=== PATIENT | male | born 1935 | race Caucasian/White ===

== ENCOUNTER → 2016-11-27 | Day surgery (SDC) | payer MEDICARE, BC ==
[2016-11-21 15:08] VITALS: BMI 32.1
[~2016-11-27] MED LIST: ACETAMINOPHEN TAB 325 MG TAB PO PRN; ACETAMINOPHEN TAB 500 MG TAB PO PRN; ALPRAZolam 0.25 MG TAB PO PRN; ALPRAZolam 0.5 MG TAB PO PRN; ARTIFICIAL TEARS-HYPROMELLOSE DROPS 15 ML BTL BOTH EYES SCH; ASPIRIN 325 MG TAB PO STA; ATENOLOL 25 MG TAB PO SCH; ATORVASTATIN 80 MG TAB PO SCH; ATORVASTATIN 80 MG TAB PO STA; FELODIPINE 5 MG PO SCH; HYDROCHLOROTHIAZIDE 25 MG TAB PO SCH; HYDROmorphone 1 MG/ML 1 ML SYRINGE IVP STA; HYDROmorphone 1 MG/ML 1 ML SYRINGE ONE; IOHEXOL 350 MG/ML 125ML BOTTLE INJ ONE; ISOSORBIDE MONONITRATE 20 MG TAB PO SCH; LIDOCAINE 2% INJ 20 MG/ML (20 ML MDV) ONE; LIDOCAINE 2% INJ 20 MG/ML SQ ONE; METHOCARBAMOL 750 MG TAB PO SCH; MIDAZOLAM 2 MG/2 ML VIAL IV ONE; MIDAZOLAM 2 MG/2 ML VIAL ONE; NITROGLYCERIN SL TABS 0.4 MG TAB SUBLINGUAL PRN; NON-FORMULARY DRUG (Aspirin [Adult Low Dose Aspirin Ec] 81 MG) PO SCH; NON-FORMULARY DRUG (Meloxicam [Meloxicam] 15 MG) PO SCH; NON-FORMULARY DRUG (Omega-3 Fatty Acids/Fish Oil [Fish Oil 1,000 Mg Softgel] 1 EACH) PO SCH; NON-FORMULARY DRUG (Omeprazole [Omeprazole] 20 MG) PO SCH; RX INFO: IV CONTRAST WAS GIVEN 1 EACH MISC MISCELLANE PRN; SODIUM CHLORIDE 0.9% 1,000 ML IV SCH; SODIUM CHLORIDE 0.9% 1,000 ML in EMPTY BAG 1 BAG IV ONE; fentaNYL (PF) 50 MCG/ML 2 ML AMP IV ONE; fentaNYL (PF) 50 MCG/ML 2 ML AMP ONE; traMADol 50 MG TAB PO ONE; traMADol 50 MG TAB PO SCH
[2016-11-27 06:27] VITALS: TEMP 97.5
[2016-11-27] MEDS: BENZOCAINE SPRAY 1 SPRAY CAN MUCOUS MEM ONE ×2 (07:15→07:19)
[2016-11-27 08:39] LABS: Site FA
[2016-11-27 08:40] LABS: Site PA; Site RA
[2016-11-27 10:01] VITALS: RESP 16
[2016-11-27 11:41] LABS: Partial Thromboplastin Time 23.2 sec (22.0-30.0); Prothrombin Time 10.5 sec (9.0-12.0)
--- NOTE | 2016-11-27 11:48 | P.GSCN ---
<Adelita Alfredo - Last Filed: 11/27/16 11:33> History of Present Illness Consult date: 11/27/16 Reason for Consult: Symptomatic multivessel coronary artery disease, severe aortic stenosis, surgical recommendations. Requesting physician: Mignon Stokes History of present illness: This 81-year-old gentleman presented for elective cardiac catheterization and transesophageal echocardiogram. Apparently he had a heart catheterization in 2009 demonstrating significant mid LAD stenosis but with unsuccessful placement of a stent due to disease in the proximal LAD. He has been followed by cardiology and had an echocardiogram done in 2013 demonstrating moderate aortic stenosis. Lately he has complained of progressive fatigue and dyspnea as well as some lower extremity edema. He also complained of pain between his shoulders , sought medical attention, had an MRI, and was told he has a pinched nerve. He does state that this shoulder pain is relieved with nitroglycerin sublingual. He denied paroxysmal nocturnal dyspnea, orthopnea, palpitations, syncope, claudication, or signs of TIA or stroke. He was recommended to have heart catheterization and transesophageal echocardiogram which was completed this morning. The [facility] demonstrated severe aortic stenosis with a peak gradient of 90 mmHg and a mean gradient of 58 mmHg, aortic area 0.69 cm, normal LV function, mild AI, mild TR, mild MR. His heart catheterization demonstrated 50 % stenosis in the RCA, 90% stenosis of circumflex artery, and 90% proximal LAD stenosis. Due to the above findings Dr. Lam from cardiothoracic surgery was consulted for surgical recommendations. Review of Systems 14 point review of systems was completed and was negative except as noted. - Constitutional Reports fatigue - Cardiovascular Reports as per HPI, Reports dyspnea on exertion, Reports leg edema - Respiratory Reports as per HPI, Reports dyspnea - Musculoskeletal bilateral: shoulder pain Past Medical History Past Medical History: Coronary Artery Disease (CAD), Hyperlipidemia, Hypertension, Osteoarthritis (OA) Additional Past Medical History / Comment(s): Severe aortic stenosis, shoulder pain. History of Any Multi-Drug Resistant Organisms: None Reported Past Surgical History: Back Surgery, Joint Replacement Additional Past Surgical History / Comment(s): Bilateral knee replacements, bilateral cataract surgery, surgery to repair torn groin . Heart catheterization in 2009 without stent placement Additional Past Anesthesia/Blood Transfusion Reaction / Comm: Was told had a reaction to Sodium Pentothol during a surgery, states unaware of what reaction was. Past Psychological History: No Psychological Hx Reported Smoking Status: Former smoker Past Alcohol Use History: None Reported Additional Past Alcohol Use History / Comment(s): Smoked in his 20's, none since. Past Drug Use History: None Reported - Past Family History Father Family Medical History: Cancer Additional Family Medical History / Comment(s): Prostate cancer. Brother(s) Family Medical History: Coronary Artery Disease (CAD) Additional Family Medical History / Comment(s): Brother who of premature coronary artery disease at 45 years old Medications and Allergies Home Medications Medication Instructions Recorded Confirmed Type Acetaminophen [Tylenol Extra 500 mg PO Q6H PRN 11/21/16 11/21/16 History Strength] Acetaminophen [Tylenol] 650 mg PO Q4H PRN 11/21/16 11/21/16 History Artificial Tears-Hypromellose 1 drops BOTH EYES QID 11/21/16 11/21/16 History [Artificial Tear Drops] Aspirin [Adult Low Dose Aspirin EC] 81 mg PO DAILY 11/21/16 11/27/16 History Atenolol 25 mg PO DAILY 11/21/16 11/27/16 History Atorvastatin [Lipitor] 40 mg PO HS 11/21/16 11/27/16 History Felodipine [Felodipine ER] 5 mg PO BID 11/21/16 11/27/16 History Hydrochlorothiazide 12.5 mg PO DAILY 11/21/16 11/27/16 History Isosorbide Mononitrate 60 mg PO BID 11/21/16 11/27/16 History Meloxicam 15 mg PO DAILY 11/21/16 11/27/16 History Methocarbamol [Robaxin] 750 mg PO TID 11/21/16 11/27/16 History Nitroglycerin Sl Tabs [Nitrostat] 0.4 mg SUBLINGUAL Q5M PRN 11/21/16 11/27/16 History [place]-3 Fatty Acids/Fish Oil [Fish 1 each PO DAILY 11/21/16 11/27/16 History Oil 1,000 mg Softgel] Omeprazole 20 mg PO BID 11/21/16 11/27/16 History traMADol HCL [Ultram] 100 mg PO QID 11/21/16 11/27/16 History Allergies Allergy/AdvReac Type Severity Reaction Status Date / Time Penicillins Allergy Rash/Hives Verified 11/21/16 14:43 sodium pentothol Allergy Unknown Uncoded 11/21/16 14:43 Surgical - Exam Vital Signs Temp Pulse Resp BP Pulse Ox 97.5 F L 68 18 176/82 95 11/27/16 06:20 11/27/16 06:20 11/27/16 06:20 11/27/16 06:20 11/27/16 06:20 - General well developed, well nourished, no distress, no pain - Eyes PERRL, normal ocular movement - ENT no hearing loss - Neck trachea midline - Respiratory Respirations even, nonlabored. Currently on room air with oxygen saturation 95% . normal expansion, normal respiratory effort, clear to auscultation - Cardiovascular S1, S2 present. Regular rate and rhythm, normal sinus rhythm on telemetry. Palpable pulses bilaterally. No edema present. Positive minimal varicosities to bilateral lower extremity. - Abdomen Abdomen: soft, non tender, bowel sounds - Genitourinary Deferred - Rectum Deferred - Integumentary no rash, no growths - Psychiatric oriented to time, oriented to person, oriented to place, speech is normal, memory intact Results - Imaging Additional studies: Results of cardiac catheterization and transesophageal echocardiogram reviewed. Assessment and Plan (1) Coronary artery disease Status: Acute (2) Hypertension Status: Acute (3) Hyperlipidemia Status: Acute (4) Severe aortic stenosis Status: Acute (5) Family history of premature coronary artery disease Status: Acute (6) Tobacco dependence in remission Status: Acute Plan: The patient was seen and examined in the extended stay unit. Chart/diagnostics were reviewed. Preoperative teaching was initiated with patient and family. Preoperative testing was ordered. Will discuss the case with Dr. Lam for further surgical recommendations. Thank you Dr. Stokes for this consult. We look forward to working with you the care of your patient. Time with Patient: Greater than 30 <Carlo Lam - Last Filed: 11/27/16 14:35> Surgical - Exam Vital Signs Temp Pulse Resp BP Pulse Ox 97.5 F L 68 18 176/82 95 11/27/16 06:20 11/27/16 06:20 11/27/16 06:20 11/27/16 06:20 11/27/16 06:20 Results - Labs 11/27/16 11:18 11/27/16 11:18 Abnormal Lab Results - Last 24 Hours (Table) 11/27/16 11/27/16 11/27/16 Range/Units 11:18 11:18 11:18 RBC 4.00 L (4.30-5.90) m/uL Hgb 12.8 L (13.0-17.5) gm/dL Hct 38.7 L (39.0-53.0) % BUN 21 H (9-20) mg/dL Glucose 104 H (74-99) mg/dL Hemoglobin A1c 6.3 H (4.2-6.1) % Diabetes panel 11/27/16 11/27/16 Range/Units 11:18 11:18 Sodium 137 (137-145) mmol/L Potassium 4.6 (3.5-5.1) mmol/L Chloride 105 (98-107) mmol/L Carbon Dioxide 23 (22-30) mmol/L BUN 21 H (9-20) mg/dL Creatinine 0.80 (0.66-1.25) mg/dL Glucose 104 H (74-99) mg/dL Hemoglobin A1c 6.3 H (4.2-6.1) % Calcium 9.0 (8.4-10.2) mg/dL AST 31 (17-59) U/L ALT 49 (21-72) U/L Alkaline Phosphatase 75 (38-126) U/L Total Protein 6.4 (6.3-8.2) g/dL Albumin 3.7 (3.5-5.0) g/dL Triglycerides 136 (<150) mg/dL HDL Cholesterol 41 (40-60) mg/dL Thyroid panel 11/27/16 Range/Units 11:18 TSH 2.740 (0.465-4.680) mIU/L Calcium panel 11/27/16 Range/Units 11:18 Calcium 9.0 (8.4-10.2) mg/dL Albumin 3.7 (3.5-5.0) g/dL Pituitary panel 11/27/16 Range/Units 11:18 Sodium 137 (137-145) mmol/L Potassium 4.6 (3.5-5.1) mmol/L Chloride 105 (98-107) mmol/L Carbon Dioxide 23 (22-30) mmol/L BUN 21 H (9-20) mg/dL Creatinine 0.80 (0.66-1.25) mg/dL Glucose 104 H (74-99) mg/dL Calcium 9.0 (8.4-10.2) mg/dL TSH 2.740 (0.465-4.680) mIU/L Adrenal panel 11/27/16 Range/Units 11:18 Sodium 137 (137-145) mmol/L Potassium 4.6 (3.5-5.1) mmol/L Chloride 105 (98-107) mmol/L Carbon Dioxide 23 (22-30) mmol/L BUN 21 H (9-20) mg/dL Creatinine 0.80 (0.66-1.25) mg/dL Glucose 104 H (74-99) mg/dL Calcium 9.0 (8.4-10.2) mg/dL Total Bilirubin 0.4 (0.2-1.3) mg/dL AST 31 (17-59) U/L ALT 49 (21-72) U/L Alkaline Phosphatase 75 (38-126) U/L Total Protein 6.4 (6.3-8.2) g/dL Albumin 3.7 (3.5-5.0) g/dL Assessment and Plan Plan: The patient was seen and examined. I agree with the above assessment and plan. The patient is an 81-year-old male with a known history of aortic stenosis and coronary artery disease who reports worsening fatigue and shoulder pain relieved with sublingual nitroglycerin. His echocardiogram reveals severe aortic valve stenosis with a significant amount of calcium on a trileaflet aortic valve. His cardiac catheterization reveals multivessel coronary artery disease. Of note a previous catheterization back in 2009 revealed a 90% lesion in the proximal LAD. PCI was attempted on this lesion at that time however it could not be crossed easily with a wire. An aortic valve replacement along with coronary artery bypass recommended. The risks, benefits, and alternatives to these procedures were discussed with the patient and his family members. All their questions were answered. I did discuss the plan with Dr. Stokes, who is in agreement. We will plan on discharging the patient home. He needs dental clearance. We will arrange for his surgery to be performed within the next 1-2 weeks.
[2016-11-27 11:50] LABS: ALT 49 U/L (21-72); AST 31 U/L (17-59); Alkaline Phosphatase 75 U/L (38-126); Anion Gap 9 mmol/L; Blood Urea Nitrogen 21 mg/dL (9-20); Carbon Dioxide 23 mmol/L (22-30); Chloride 105 mmol/L (98-107); Cholesterol 109 mg/dL (<200); Glucose 104 mg/dL (74-99); HDL Cholesterol 41 mg/dL (40-60); Magnesium 1.7 mg/dL (1.6-2.3); Non-African American GFR(MDRD) >60 (>60 ml/min/1.73 sqM); Potassium 4.6 mmol/L (3.5-5.1); Sodium 137 mmol/L (137-145); Total Bilirubin 0.4 mg/dL (0.2-1.3); Total Protein 6.4 g/dL (6.3-8.2)
[2016-11-27 11:58] LABS: Basophils % (A) 0 %; CH 32.2; CHCM 33.4; Eosinophils # (A) 0.4 k/uL (0-0.7); Eosinophils % (A) 5 %; HCT 38.7 % (39.0-53.0); HDW 2.33; HGB 12.8 gm/dL (13.0-17.5); Luc # (Auto) 0.17; Luc % (Auto) 2; Lymphocytes # (A) 2.4 k/uL (1.0-4.8); Lymphocytes % (A) 31 %; MCH 32.1 pg (25.0-35.0); MCHC 33.1 g/dL (31.0-37.0); MCV 96.7 fL (80.0-100.0); Mean Platelet Volume 6.9; Monocytes # (A) 0.4 k/uL (0-1.0); Monocytes % (A) 5 %; Neutrophils # (A) 4.5 k/uL (1.3-7.7); Neutrophils % (A) 57 %; RDW 13.2 % (11.5-15.5); WBC 7.8 k/uL (3.8-10.6); WBC (Perox) 8.12
[2016-11-27 12:34] LABS: Appearance,Urine Clear (Clear); Bilirubin,Urine Negative (Negative); Glucose,Urine (UA) Negative (Negative); Ketones,Urine Negative (Negative); Leukocyte Esterase,Urine Negative (Negative); Nitrite,Urine Negative (Negative); Protein,Urine Negative (Negative); Specific Gravity,Urine 1.017 (1.001-1.035); UA Billing (MACRO vs. MICRO) CHEM; Urobilinogen,Urine <2.0 mg/dL (<2.0)
--- NOTE | 2016-11-27 13:04 | ECHOT ---
INDICATION: Evaluation of aortic valve. PROCEDURE: After explaining the procedure to the patient, its risks and the complications, blood pressure, heart rate, O2 saturation were monitored. The throat was sprayed with Cetacaine. He received 2 mg of intravenous Versed, 50 mcg intravenous fentanyl. After obtaining moderate conscious sedated state, the probe was introduced in the esophagus without difficulty. Images were obtained. Following that, the probe was removed. There was no immediate complication. FINDINGS: Left atrial size is mildly dilated. Left atrial appendage is normal. Left ventricular size and systolic function normal. Concentric left ventricular hypertrophy was noted. The aortic valve is a tricuspid valve with severe calcification and reduction in the opening. The mitral valve appears to be normal. Tricuspid valve appears to be normal. Descending thoracic aorta revealed mild atherosclerotic changes. No pericardial effusion was noted. Contrast bubble study revealed no evidence of shunting across the interatrial septum. Doppler pulse wave and color Doppler obtained revealed mild to moderate mitral with mild tricuspid, aortic and trace pulmonic regurgitation. The peak gradient across the aortic valve was 105 mmHg with a mean of 56 mmHg. CONCLUSION: 1. Mildly dilated left atrium with normal appearance of left atrial appendage. 2. Normal left ventricular size and systolic function. Concentric left ventricular hypertrophy. 3. Severe aortic stenosis with tricuspid valve and a peak gradient of 105 mmHg and a mean of 56 mmHg. 4. Mild to moderate mitral with mild tricuspid, aortic and trace pulmonic regurgitation. 5. Mild atherosclerotic changes of the descending thoracic aorta. 6. No shunting across the interatrial septum. MTDD
[2016-11-27 14:06] LABS: Hemoglobin A1C 6.3 % (4.2-6.1)
--- NOTE | 2016-11-27 15:17 | XR ---
EXAMINATION TYPE: XR chest 2V DATE OF EXAM: 11/27/2016 COMPARISON: 05/08/2009 TECHNIQUE: PA and lateral views submitted. HISTORY: Pre-op CABG FINDINGS: The lungs are clear and there is no pneumothorax, pleural effusion, or focal pneumonia. Arthropathy of the shoulders. Hypertrophic and degenerative change of the spine. No overt failure. Mild prominen ce of the ascending aorta. IMPRESSION: 1. No acute process. Cannot exclude an ascending aortic aneurysm. Correlate clinically. A Ladora message has been communicated to Adelita Alfredo via the [employer] Critical Result system on 11/27/2016 3:14 PM, Message ID [id number].
[2016-11-27 15:47] VITALS: BP 138/62; PULSE 76
[2016-11-27 20:26] LABS: Hepatitis B Surface Ag Index 0.05
[2016-11-27 20:32] LABS: Hepatitis B Core IgM Index 0.01
[2016-11-27 20:43] LABS: Hepatitis C Virus IgG Ab Negative (Negative); Hepatitis C Virus IgG Index 0.01
--- NOTE | 2016-11-28 09:36 | PCN ---
Mr. Arora is an 81-year-old male with known history of hypertension, hyperlipidemia, history of coronary artery disease, who has been complaining of symptoms of progressive dyspnea and chest discomfort. He was found to have severe aortic stenosis. In view of that, recommendation was made regarding cardiac catheterization. The procedure, the risks, benefits and complications were discussed with the patient who was in full understanding and agreement. PROCEDURE: The patient was brought to the [facility] in fasting semi-sedated state after receiving Fentanyl and Benadryl and achieving moderate conscious sedated state. Using Xylocaine anesthesia and Seldinger technique, a 6 Tunisian sheath was introduced into the right femoral artery and 8 Tunisian sheath in the right femoral vein. Right heart catheterization was performed using Lucas-Jose catheter and multiple pressure samples were obtained. Cardiac output by Thermodilution was calculated. Following that selective right and left coronary angiography was performed using 6 Tunisian 4 bend right and left Yesi catheters. Multiple views of the coronary arteries including hemiaxial views obtained. Following that a 6-Tunisian tight pigtail catheter was introduced into the left ventricle and a 30 degree REYNOSO view of the left ventricle was obtained. Following that catheter and sheath were removed. Hemostasis was obtained with deployment of an Angio-Seal and compression of the right femoral vein. There were no immediate complications. FINDINGS: Cardiac output by Thermodilution 5.2 L/min, by [place] 5.2 L/min. Right atrial saturation 74%. Pulmonary artery saturation 70%. Femoral artery saturation 97%. Pulmonary artery systolic pressure 35 with diastolic of 12 and mean of 20 mmHg. Pulmonary capillary wedge pressure A-wave of 12, V-wave of 12 with mean of 11 mmHg. Right ventricular systolic pressure of 34 with end-diastolic of 6 mmHg. Right atrial A-wave of 7, V-wave of 4 with mean of 4 mmHg. Left ventricular systolic pressure 240 mmHg with ascending aortic pressure of 140 mmHg with 100 mm gradient and valve area ranging between 0.5 and 0.6 cm sq. Left ventricular end-diastolic pressure 20 to 24 mmHg. FLUOROSCOPY: There is severe calcification involving coronary arteries as well as the aortic valve. LEFT MAIN: This is a large size vessel bifurcating into left circumflex, left anterior descending artery. The left main coronary artery is without any significant obstructive coronary artery disease. LEFT ANTERIOR DESCENDING ARTERY: This is a large size vessel reaching towards the apex with wrap around the apex segment giving rise to a large diagonal branch proximally. The diagonal branch has a 70 to 80% proximal stenosis. The left anterior descending artery after the takeoff of the diagonal branch has a 95% stenosis. The rest of the vessel has no high-grade stenosis. LEFT CIRCUMFLEX: This is nondominant vessel moderate to large in caliber. Has a longer tubular lesion in the mid-segment with area of stenosis up to 85 to 90% . The rest of the vessel has no high grade stenosis. RIGHT CORONARY ARTERY: This is a large nondominant vessel bifurcating distally into PDA distally and posterior segment and branches. The right coronary artery in the mid-segment has area of stenosis of 40 to 50% without any evidence of focal high grade stenosis. LEFT VENTRICULOGRAM: The left ventriculogram is performed in 30 degree REYNOSO view and revealed a normal left ventricular size with arrhythmia induced mitral regurgitation. The ejection fraction is 60%. CONCLUSION: 1. Severely calcified coronary arteries and severely calcified aortic valve. 2. Severe coronary artery disease involving the left anterior disease and left circumflex with moderate disease in the right coronary artery. 3. Severe critical aortic stenosis. 4. Normal left ventricular size and systolic function. RECOMMENDATIONS: In view of finding anatomy, I recommend proceeding with evaluation for coronary artery bypass grafting and aortic valve replacement. Those findings and recommendations were discussed with the patient who is in full understanding and agreement. DURATION OF THE PROCEDURE: 39 minutes. GRAHAM
== END | disposition home or self-care (01) ==
LOC: CATHCVL 05:48
PROVIDERS: ATTEND Internal Medicine Interventional Cardiology
DX: I08.3 Combined rheumatic disorders of mitral, aortic and tricuspid valves (principal); I37.1 Nonrheumatic pulmonary valve insufficiency; I25.118 Atherosclerotic heart disease of native coronary artery with other forms of angina pectoris; I25.84 Coronary atherosclerosis due to calcified coronary lesion; I51.7 Cardiomegaly; Z82.49 Family history of ischemic heart disease and other diseases of the circulatory system; Z87.891 Personal history of nicotine dependence; I10 Essential (primary) hypertension; E78.2 Mixed hyperlipidemia; I73.9 Peripheral vascular disease, unspecified; Z79.82 Long term (current) use of aspirin; Z79.899 Other long term (current) drug therapy; Z88.0 Allergy status to penicillin; Z88.8 Allergy status to other drugs, medicaments and biological substances
CPT/HCPCS: 71020; 80053; 80061; 80074; 81003; 82810; 83036; 83735; 83880; 84443; 85018; 85025; 85610; 85730; 86850; 86900; 86901; 87070; 87086; 93312; 93320; 93325; 93460; 93970; 94150

== ENCOUNTER → 2016-12-02 | Outpatient (CLI) | payer MEDICARE, BC ==
[2016-12-02 10:32] LABS: Blood Urea Nitrogen 29 mg/dL (9-20); Non-African American GFR(MDRD) >60 (>60 ml/min/1.73 sqM)
--- NOTE | 2016-12-02 13:38 | CT ---
EXAMINATION TYPE: CT chest w con DATE OF EXAM: 12/02/2016 COMPARISON: NONE HISTORY: Patient has no complaints at time of study. Pre open heart valve replacement. CT DLP: 507 mGycm, Automated exposure control for dose reduction was used. CONTRAST: Performed injected with 100 mL of Omnipaque 300. TECHNIQUE: Axial images were obtained at 5 mm thick sections. Reconstructed images are reviewed on [employer] computer in the coronal plane. FINDINGS: Portion of the thyroid visualized is normal. No suspicious lung nodules or focal infiltrates are present. No enlarged mediastinal or hilar adenopathy is evident. There multiple shotty lymph nodes present. Note is made of coronary artery calcification. The ascending aorta diameter at the level of the main pulmonary artery is 4.0 cm. The main pulmonary artery diameter at the bifurcation is 2.[address] sections are obtained through the upper abdomen. Moderate fatty infiltration within the li michelle is present. Vascular calcifications within the aorta. There is fatty infiltration within the panc reas. IMPRESSIONS: 1. No acute intrathoracic changes. 2. 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 3. Fatty infiltration liver and pancreas.
== END | disposition home or self-care (01) ==
LOC: RADCTMAIN 09:51
PROVIDERS: ATTEND Surgery
DX: I71.2 Thoracic aortic aneurysm, without rupture (principal); Z88.0 Allergy status to penicillin; Z88.8 Allergy status to other drugs, medicaments and biological substances
CPT/HCPCS: 82565; 84520; 71260; 36415; Q9967

== ENCOUNTER 2016-12-10 08:00 | Inpatient (IN) | payer MEDICARE, BC ==
[2016-12-06 11:14] VITALS: BMI 31.1
[2016-12-11] MEDS ORDERED: ALBUMIN HUMAN 5% 500 ML IVPB ONE (05:00)
[2016-12-11] MEDS ORDERED: HEPARIN SODIUM,PORCINE 5,000 UNIT in SODIUM CHLORIDE 0.9% 500 ML IV ONE (05:00)
[2016-12-11] MEDS ORDERED: NITROGLYCERIN-D5W PMX 25 MG/250 ML BTL IV ONE (05:00)
[2016-12-11] MEDS ORDERED: PAPAVERINE 360 MG in SODIUM CHLORIDE 0.9% 90 ML IV ONE (05:00)
[2016-12-11] MEDS ORDERED: ASPIRIN 325 MG TAB PO ONE (05:00)
[2016-12-11] MEDS ORDERED: ceFAZolin 1,000 MG in SODIUM CHLORIDE 0.9% IRRIGATIO 1,000 ML IRRIGATION ONE (05:00)
[2016-12-11] MEDS ORDERED: ceFAZolin 2,000 MG in SODIUM CHLORIDE 0.9% 30 ML IVPB ONE ×4 (05:00)
[2016-12-11] MEDS ORDERED: ATORVASTATIN 10 MG TAB PO ONE (05:00)
[2016-12-11] MEDS ORDERED: MAGNESIUM SULFATE MG 500 MG/ML VIAL IV ONE (05:00)
[2016-12-11] MEDS ORDERED: PHENYLEPHRINE-0.9% NACL SYG 1 MG/10 ML SYRINGE IV ONE (05:00)
[2016-12-11] MEDS ORDERED: CLEVIDIPINE BUTYRATE 25 MG in EMPTY BAG 1 BAG IV ONE (05:00)
[2016-12-11] MEDS ORDERED: SODIUM BICARB 8.4% 50 ML SYR (1 MEQ/ML) IV ONE ×2 (05:00→18:45)
[2016-12-11] MEDS ORDERED: CALCIUM CHLORIDE 100 MG/ML 10 ML SYRINGE IV ONE (05:00)
[2016-12-11] MEDS ORDERED: PROTAMINE SULFATE 250 MG in EMPTY BAG 1 BAG IV ONE (05:00)
[2016-12-11] MEDS ORDERED: DEXTROSE 5% IN WATER 1,000 ML with POTASSIUM CHLORIDE 25 MEQ, SODIUM CHLORIDE 4MEQ/ML V... IV ONE ×6 (05:00)
[2016-12-11] MEDS ORDERED: PROTAMINE SULFATE 10 MG/ML 25 ML VIAL IV ONE ×2 (05:00→08:38)
[2016-12-11] MEDS ORDERED: HEPARIN SODIUM 1,000 UN/ML (10ML VL) IV ONE (05:00)
[2016-12-11] MEDS ORDERED: DEXTROSE 5% IN WATER 1,000 ML with POTASSIUM CHLORIDE 110 MEQ, MAGNESIUM SULFATE 16 MEQ... IV ONE ×5 (05:00)
[2016-12-11] MEDS ORDERED: NITROGLYCERIN SL TABS 0.4 MG TAB SUBLINGUAL ONE (05:00)
[2016-12-11] MEDS ORDERED: PROPOFOL 1,000 MG/100 ML VIAL IV ONE (05:00)
[2016-12-11] MEDS ORDERED: SODIUM CHLORIDE 0.9% 1,000 ML IV ONE (05:00)
[2016-12-11] MEDS ORDERED: METOPROLOL TARTRATE 12.5 MG TAB PO ONE (05:00)
[2016-12-11] MEDS ORDERED: INSULIN REGULAR 100 UNIT in SODIUM CHLORIDE 0.9% 100 ML IV ONE (05:00)
[2016-12-11] MEDS ORDERED: AMINOCAPROIC ACID 250 MG/ML 20 ML VIAL IV ONE (05:00)
[2016-12-11] MEDS ORDERED: LACTATED RINGERS 1,000 ML IV ONE (05:00)
[2016-12-11] MEDS ORDERED: MANNITOL 25% 12.5 GM/50 ML VIAL IV ONE (05:00)
[2016-12-11] MEDS ORDERED: AMINOCAPROIC ACID 5,000 MG in DEXTROSE 5% IN WATER 50 ML IV ONE ×2 (05:00)
[2016-12-11] MEDS ORDERED: ALBUMIN HUMAN 25% 50 ML IV ONE (05:00)
[2016-12-11] MEDS ORDERED: NITROGLYCERIN-D5W PMX 50 MG in DEXTROSE/WATER 1 250ML.BAG IV ONE (05:00)
[2016-12-11] MEDS ORDERED: CHLORHEXIDINE GLUCONATE 15 ML CUP MUCOUS MEM ONE (05:00)
[2016-12-11] MEDS ORDERED: NOREPINEPHRIN 4 MG-0.9% NS PMX 4 MG/250 ML ML IV ONE (05:00)
[2016-12-11] MEDS ORDERED: PHENYLEPHRINE 40 MG in SODIUM CHLORIDE 0.9% 250 ML IV ONE (05:00)
[2016-12-11] MEDS ORDERED: LACTATED RINGERS 1,000 ML IV SCH ×2 (06:07→16:47)
[2016-12-11 06:51] LABS: Glucose,Whole Blood 103 mg/dL (75-99)
[2016-12-11] MEDS ORDERED: SODIUM CHLORIDE 0.9% IRRIG 1,000 ML BTL IRRIGATION ONE (08:38)
[2016-12-11] MEDS ORDERED: MIDAZOLAM 2 MG/2 ML VIAL ONE (08:38)
[2016-12-11] MEDS ORDERED: ELECTROLYTE-R (PH 7.4) 1,000 ML IV.SOLN IV ONE (08:38)
[2016-12-11] MEDS ORDERED: CALCIUM CHLORIDE 100 MG/ML 10 ML SYRINGE ONE (08:38)
[2016-12-11] MEDS ORDERED: fentaNYL (PF) 50 MCG/ML 2 ML AMP ONE (08:38)
[2016-12-11] MEDS ORDERED: VECURONIUM 10 MG VIAL IV ONE (08:38)
[2016-12-11] MEDS ORDERED: ePHEDrine SULFATE/0.9% NACL/PF 50 MG/5 ML SYRINGE IV ONE (08:38)
[2016-12-11] MEDS ORDERED: fentaNYL (PF) 50 MCG/ML 50 ML VIAL ONE (08:38)
[2016-12-11] MEDS ORDERED: ALBUMIN HUMAN 5% 500 ML VIAL IVPB ONE (08:38)
[2016-12-11] MEDS ORDERED: MAGNESIUM SULFATE 4 MEQ/ML 2 ML VIAL ONE (08:38)
[2016-12-11] MEDS ORDERED: PHENYLEPHRINE-0.9% NACL SYG 1 MG/10 ML SYRINGE ONE (08:38)
[2016-12-11] MEDS ORDERED: PROPOFOL 10 MG/ML 20 ML VIAL IV ONE (08:38)
[2016-12-11] MEDS ORDERED: HEPARIN SODIUM,PORCINE 10,000 UNIT/ML 1 ML VIAL ONE (08:38)
[2016-12-11] MEDS ORDERED: MUPIROCIN 2% OINT 22 GM TUBE NASAL ONE (09:00)
[2016-12-11 09:21] LABS: Glucose,Whole Blood 99 mg/dL (75-99)
[2016-12-11 10:40] LABS: Glucose,Whole Blood 119 mg/dL (75-99)
[2016-12-11 11:33] LABS: Glucose,Whole Blood 156 mg/dL (75-99)
[2016-12-11 12:03] LABS: Glucose,Whole Blood 245 mg/dL (75-99)
[2016-12-11 13:04] LABS: Glucose,Whole Blood 293 mg/dL (75-99)
[2016-12-11 13:46] LABS: Glucose,Whole Blood 250 mg/dL (75-99)
[2016-12-11 14:24] LABS: Glucose,Whole Blood 295 mg/dL (75-99)
[2016-12-11 14:51] LABS: Glucose,Whole Blood 238 mg/dL (75-99)
[2016-12-11] MEDS ORDERED: AMIODARONE 450 MG in DEXTROSE 5% IN WATER 250 ML IV ONE ×2 (15:00)
[2016-12-11 15:28] LABS: Glucose,Whole Blood 194 mg/dL (75-99)
[2016-12-11 15:56] LABS: Glucose,Whole Blood 164 mg/dL (75-99)
[2016-12-11] MEDS ORDERED: Phosphorus Replacement Protoco 1 EACH MISC MISCELLANE PRN (16:47)
[2016-12-11] MEDS ORDERED: METOCLOPRAMIDE 5 MG/ML 2 ML VIAL IVP PRN (16:47)
[2016-12-11] MEDS ORDERED: PROPOFOL 1,000 MG/100 ML VIAL IV SCH (16:47)
[2016-12-11] MEDS ORDERED: CALCIUM GLUCONATE 2,000 MG in SODIUM CHLORIDE 0.9% 100 ML IVPB PRN (16:47)
[2016-12-11] MEDS ORDERED: MORPHINE SULFATE 2 MG/ML SYRINGE IVP PRN (16:47)
[2016-12-11] MEDS ORDERED: ONDANSETRON 4 MG/2 ML VIAL IVP PRN (16:47)
[2016-12-11] MEDS ORDERED: Potassium Replacement Protocol 1 EACH MISC MISCELLANE PRN (16:47)
[2016-12-11] MEDS ORDERED: Magnesium Replacement Protocol 1 EACH MISC MISCELLANE PRN (16:47)
[2016-12-11] MEDS ORDERED: BENZOCAINE/MENTHOL LOZENG 1 EACH LOZENGE MUCOUS MEM PRN (16:47)
[2016-12-11] MEDS ORDERED: INSULIN REGULAR 100 UNIT in SODIUM CHLORIDE 0.9% 100 ML IV SCH (17:30)
[2016-12-11 17:53] LABS: Glucose,Whole Blood 139 mg/dL (75-99)
[2016-12-11] MEDS: IPRATROPIUM-ALBUTEROL 3 ML NEB INHALATION SCH ×3 (18:25→23:08)
[2016-12-11 18:54] LABS: Glucose,Whole Blood 151 mg/dL (75-99)
[2016-12-11 18:55] LABS: Ionized Calcium 4.2 mg/dL (4.5-5.3)
[2016-12-11 19:00] LABS: Prothrombin Time 19.2 sec (9.0-12.0)
[2016-12-11 19:02] LABS: ALT 32 U/L (21-72); AST 33 U/L (17-59); Alkaline Phosphatase <20 U/L (38-126); Anion Gap 9 mmol/L; Blood Urea Nitrogen 18 mg/dL (9-20); Calcium 7.1 mg/dL (8.4-10.2); Carbon Dioxide 26 mmol/L (22-30); Chloride 107 mmol/L (98-107); Glucose 132 mg/dL (74-99); Magnesium 2.2 mg/dL (1.6-2.3); Non-African American GFR(MDRD) >60 (>60 ml/min/1.73 sqM); Potassium 4.4 mmol/L (3.5-5.1); Sodium 142 mmol/L (137-145); Total Bilirubin 1.3 mg/dL (0.2-1.3); Total Protein 3.8 g/dL (6.3-8.2)
[2016-12-11 19:07] LABS: Basophils % (A) 0 %; CH 30.9; CHCM 33.8; Eosinophils % (A) 0 %; HDW 2.93; Luc # (Auto) 0.07; Luc % (Auto) 1; Lymphocytes # (A) 0.6 k/uL (1.0-4.8); Lymphocytes % (A) 10 %; MCH 31.7 pg (25.0-35.0); MCHC 34.4 g/dL (31.0-37.0); MCV 92.1 fL (80.0-100.0); Mean Platelet Volume 7.9; Monocytes # (A) 0.5 k/uL (0-1.0); Monocytes % (A) 8 %; Neutrophils # (A) 5.4 k/uL (1.3-7.7); Neutrophils % (A) 81 %; RBC 1.93 m/uL (4.30-5.90); RDW 14.7 % (11.5-15.5); WBC 6.6 k/uL (3.8-10.6); WBC (Perox) 6.55
[2016-12-11 19:09] LABS: HGB 6.1 gm/dL (13.0-17.5)
[2016-12-11 19:10] LABS: HCT 17.8 % (39.0-53.0)
[2016-12-11 19:16] LABS: Partial Thromboplastin Time 116.9 sec (22.0-30.0)
[2016-12-11 19:34] LABS: Manual Review Performed
--- NOTE | 2016-12-11 19:34 | XR ---
EXAMINATION TYPE: XR chest 1V portable DATE OF EXAM: 12/11/2016 HISTORY: Post Operative Cardiac Surgery COMPARISON: November 27, 2016 TECHNIQUE: Single view of the chest is submitted. FINDINGS: Endotracheal tube, NG tube, SG catheter, mediastianal drains and left chest tube are appropriately pl aced. Sternotomy wires noted. Cardiac valvular prosthesis. No sizeable pneumothorax. Scattered Pleural-parenchymal opacities may reflect atelectasis. The heart mildly enlarged. IMPRESSION: 1. Post operative changes of CABG.
[2016-12-11 19:56] LABS: Glucose,Whole Blood 152 mg/dL (75-99)
[2016-12-11 20:04] LABS: ABG Base Excess -3.5 mmol/L; ABG HCO3 22 mmol/L (21-25); ABG PCO2 44 mmHg (35-45); ABG PH 7.32 (7.35-7.45); ABG PO2 351 mmHg (83-108); ABG TCO2 23 mmol/L (19-24)
[2016-12-11] MEDS: ceFAZolin 2 GM in SODIUM CHLORIDE 0.9% 100 ML IVPB SCH (20:30)
[2016-12-11] MEDS: ACETAMINOPHEN IV (For NPO) 1,000 MG in EMPTY BAG 1 BAG IVPB SCH ×2 (20:30→23:11)
[2016-12-11 20:55] LABS: Glucose,Whole Blood 164 mg/dL (75-99)
[2016-12-11 21:03] LABS: Basophils % (A) 0 %; CH 29.4; CHCM 33.3; Eosinophils % (A) 0 %; HCT 23.6 % (39.0-53.0); HDW 3.12; Luc # (Auto) 0.12; Luc % (Auto) 1; Lymphocytes # (A) 1.1 k/uL (1.0-4.8); Lymphocytes % (A) 13 %; MCH 30.6 pg (25.0-35.0); MCHC 34.5 g/dL (31.0-37.0); MCV 88.8 fL (80.0-100.0); Mean Platelet Volume 8.8; Monocytes # (A) 0.5 k/uL (0-1.0); Monocytes % (A) 7 %; Neutrophils # (A) 6.3 k/uL (1.3-7.7); Neutrophils % (A) 79 %; RBC 2.66 m/uL (4.30-5.90); RDW 15.9 % (11.5-15.5); WBC 8.1 k/uL (3.8-10.6); WBC (Perox) 8.31
[2016-12-11 21:07] LABS: HGB 8.2 gm/dL (13.0-17.5)
[2016-12-11] MEDS: MUPIROCIN 2% OINT 22 GM TUBE NASAL SCH (21:19)
[2016-12-11 21:22] LABS: INR 1.7 (<1.2); Partial Thromboplastin Time 86.4 sec (22.0-30.0); Prothrombin Time 16.2 sec (9.0-12.0)
[2016-12-11 21:27] LABS: Ionized Calcium 4.5 mg/dL (4.5-5.3)
[2016-12-11 21:30] LABS: Anion Gap 8 mmol/L; Blood Urea Nitrogen 17 mg/dL (9-20); Carbon Dioxide 21 mmol/L (22-30); Chloride 109 mmol/L (98-107); Glucose 136 mg/dL (74-99); Magnesium 2.2 mg/dL (1.6-2.3); Non-African American GFR(MDRD) >60 (>60 ml/min/1.73 sqM); Phosphorous 3.8 mg/dL (2.5-4.5); Potassium 4.6 mmol/L (3.5-5.1); Sodium 138 mmol/L (137-145)
[2016-12-11 21:53] LABS: Glucose,Whole Blood 145 mg/dL (75-99)
[2016-12-11] MEDS: CLEVIDIPINE BUTYRATE 25 MG in EMPTY BAG 1 BAG IV SCH ×2 (21:53→23:58)
[2016-12-11] MEDS: SODIUM BICARB 8.4% 50 ML SYR (1 MEQ/ML) IV SCH (23:03)
[2016-12-11 23:04] LABS: ABG Base Excess -5.7 mmol/L; ABG HCO3 21 mmol/L (21-25); ABG PCO2 52 mmHg (35-45); ABG PH 7.23 (7.35-7.45); ABG PO2 123 mmHg (83-108); ABG TCO2 22 mmol/L (19-24)
[2016-12-11 23:08] LABS: Glucose,Whole Blood 188 mg/dL (75-99)
[2016-12-11] MEDS: ALBUMIN HUMAN 5% 250 ML in EMPTY BAG 1 BAG IVPB PRN (23:24)
[2016-12-11] MEDS ORDERED: AMIODARONE 450 MG in DEXTROSE 5% IN WATER 250 ML IV SCH ×2 (23:26)
[2016-12-11 23:59] LABS: Glucose,Whole Blood 178 mg/dL (75-99)
[2016-12-12] MEDS ORDERED: HEPARIN SODIUM,PORCINE 5,000 UNIT/ML 1 ML VIAL SQ SCH
[2016-12-12 00:59] LABS: Glucose,Whole Blood 217 mg/dL (75-99)
[2016-12-12] MEDS: ceFAZolin 2 GM in SODIUM CHLORIDE 0.9% 100 ML IVPB SCH ×2 (01:37→10:00)
[2016-12-12 01:58] LABS: Glucose,Whole Blood 223 mg/dL (75-99)
[2016-12-12] MEDS: ALBUMIN HUMAN 5% 250 ML in EMPTY BAG 1 BAG IVPB PRN ×5 (02:30→10:54)
[2016-12-12] MEDS: IPRATROPIUM-ALBUTEROL 3 ML NEB INHALATION SCH ×4 (03:00→15:54)
[2016-12-12 03:18] LABS: Glucose,Whole Blood 222 mg/dL (75-99)
[2016-12-12] MEDS ORDERED: NOREPINEPHRIN 16 MG-0.9%NS PMX 16 MG/250 ML ML IV SCH (04:00)
[2016-12-12 04:18] LABS: Glucose,Whole Blood 160 mg/dL (75-99)
[2016-12-12 04:22] LABS: ABG Base Excess -11.1 mmol/L; ABG HCO3 17 mmol/L (21-25); ABG PCO2 57 mmHg (35-45); ABG PO2 96 mmHg (83-108); ABG TCO2 19 mmol/L (19-24)
[2016-12-12 04:27] LABS: Anisocytosis Slight; Basophils % (A) 0 %; CH 29.2; CHCM 32.7; Eosinophils % (A) 0 %; HCT 20.4 % (39.0-53.0); HDW 3.28; Luc # (Auto) 0.05; Luc % (Auto) 1; Lymphocytes % (A) 12 %; MCH 29.5 pg (25.0-35.0); MCHC 32.7 g/dL (31.0-37.0); MCV 90.1 fL (80.0-100.0); Mean Platelet Volume 8.3; Monocytes # (A) 0.3 k/uL (0-1.0); Monocytes % (A) 4 %; Neutrophils # (A) 7.1 k/uL (1.3-7.7); Neutrophils % (A) 83 %; RBC 2.26 m/uL (4.30-5.90); RDW 17.3 % (11.5-15.5); WBC 8.5 k/uL (3.8-10.6); WBC (Perox) 8.31
[2016-12-12] MEDS ORDERED: SODIUM BICARB 8.4% 50 ML SYR (1 MEQ/ML) IV ONE ×6 (04:30→12:15)
[2016-12-12 04:33] LABS: Ionized Calcium 4.4 mg/dL (4.5-5.3)
[2016-12-12 04:40] LABS: INR 1.7 (<1.2); Prothrombin Time 16.3 sec (9.0-12.0)
[2016-12-12 04:41] LABS: ALT 162 U/L (21-72); AST 216 U/L (17-59); Alkaline Phosphatase 23 U/L (38-126); Anion Gap 17 mmol/L; Blood Urea Nitrogen 18 mg/dL (9-20); Carbon Dioxide 17 mmol/L (22-30); Chloride 108 mmol/L (98-107); Glucose 140 mg/dL (74-99); Magnesium 2.4 mg/dL (1.6-2.3); Non-African American GFR(MDRD) >60 (>60 ml/min/1.73 sqM); Potassium 5.3 mmol/L (3.5-5.1); Sodium 142 mmol/L (137-145); Total Bilirubin 1.4 mg/dL (0.2-1.3); Total Protein 4.1 g/dL (6.3-8.2)
[2016-12-12 04:58] LABS: HGB 6.7 gm/dL (13.0-17.5)
[2016-12-12] MEDS: SODIUM BICARB 8.4% 50 ML SYR (1 MEQ/ML) IV SCH ×2 (05:27→05:28)
[2016-12-12 05:53] LABS: Glucose,Whole Blood 118 mg/dL (75-99)
[2016-12-12] MEDS: ACETAMINOPHEN IV (For NPO) 1,000 MG in EMPTY BAG 1 BAG IVPB SCH ×2 (06:18→12:48)
[2016-12-12 07:08] LABS: Glucose,Whole Blood 82 mg/dL (75-99)
[2016-12-12 08:10] LABS: ABG PH 7.35 (7.35-7.45)
[2016-12-12 08:11] LABS: ABG Base Excess -7.3 mmol/L; ABG HCO3 17 mmol/L (21-25); ABG Oxygen Saturation 98.2 % (94-97); ABG PCO2 32 mmHg (35-45); ABG PO2 112 mmHg (83-108); ABG TCO2 18 mmol/L (19-24)
[2016-12-12] MEDS ORDERED: MILRINONE-D5W PMX 20 MG in DEXTROSE/WATER 1 100ML.BAG IV SCH ×2 (08:15→08:30)
[2016-12-12 08:33] LABS: Glucose,Whole Blood 72 mg/dL (75-99)
[2016-12-12] MEDS ORDERED: ALBUMIN HUMAN 5% 500 ML in EMPTY BAG 1 BAG IVPB ONE ×3 (09:00→12:43)
[2016-12-12] MEDS ORDERED: METOPROLOL TARTRATE 12.5 MG TAB PO SCH (09:00)
[2016-12-12] MEDS ORDERED: ASPIRIN 325 MG TAB PO SCH (09:00)
[2016-12-12] MEDS ORDERED: PANTOPRAZOLE 40 MG/10 ML VIAL IVP SCH (09:00)
[2016-12-12] MEDS ORDERED: CLOPIDOGREL 75 MG TAB PO SCH (09:00)
[2016-12-12] MEDS ORDERED: ATORVASTATIN 40 MG TAB PO SCH (09:00)
--- NOTE | 2016-12-12 09:05 | XR ---
EXAMINATION TYPE: XR chest 1V portable DATE OF EXAM: 12/12/2016 COMPARISON: NONE HISTORY: Postop TECHNIQUE: Single frontal view of the chest is obtained. FINDINGS: Bilateral consolidation small effusion noted. ET and NG tube stable. NG tube courses into the abdomen. Additional drains are stable including left-sided chest tube. Arthropathy of the shoulde rs. Left lower lobe consolidation and small effusion stable. IMPRESSION: 1. Stable postoperative change with bilateral consolidation and pleural effusion greater on the left.
[2016-12-12 09:06] LABS: Glucose,Whole Blood 57 mg/dL (75-99)
[2016-12-12 09:06] LABS: Glucose,Whole Blood 77 mg/dL (75-99)
[2016-12-12] MEDS ORDERED: CALCIUM CHLORIDE 100 MG/ML 10 ML SYRINGE IVP ONE (09:13)
[2016-12-12 09:48] LABS: Anisocytosis Slight; CH 30.9; HCT 21.3 % (39.0-53.0); HDW 3.26; HGB 7.2 gm/dL (13.0-17.5); MCH 30.2 pg (25.0-35.0); Mean Platelet Volume 8.9; RBC 2.39 m/uL (4.30-5.90); RDW 16.7 % (11.5-15.5); WBC 9.1 k/uL (3.8-10.6); WBC (Perox) 9.12
[2016-12-12 09:52] LABS: ABG Base Excess -11.9 mmol/L; ABG HCO3 14 mmol/L (21-25); ABG Oxygen Saturation 95.6 % (94-97); ABG PCO2 36 mmHg (35-45); ABG PH 7.23 (7.35-7.45); ABG PO2 93 mmHg (83-108); ABG TCO2 15 mmol/L (19-24)
[2016-12-12 10:23] LABS: Add Differential Manual Differential
[2016-12-12 10:28] LABS: Band Neutrophils % 28 %; Nucleated Red Blood Cells 0 /100 WBC (0-0); Total Cells Counted 200
[2016-12-12 10:32] LABS: Polychromasia Present; Spherocytes Present
[2016-12-12] MEDS ORDERED: SODIUM BICARB 8.4% 50 ML SYR (1 MEQ/ML) IV STA ×2 (10:32→11:11)
[2016-12-12] MEDS ORDERED: DEXTROSE 50%-WATER 50 ML SYRINGE IVP STA (10:46)
[2016-12-12 10:51] LABS: Glucose,Whole Blood 69 mg/dL (75-99)
[2016-12-12 10:57] LABS: CH 29.8; CHCM 34.5; HDW 3.25; HGB 7.1 gm/dL (13.0-17.5); Immature Gran Flag Moderate; MCH 30.8 pg (25.0-35.0); MCHC 35.5 g/dL (31.0-37.0); MCV 86.8 fL (80.0-100.0); Mean Platelet Volume 9.3; RDW 15.6 % (11.5-15.5); WBC 7.8 k/uL (3.8-10.6); WBC (Perox) 7.68
[2016-12-12] MEDS ORDERED: HYDROCORTISONE SUCCINATE 100 MG/2 ML VIAL IV ONE (11:00)
[2016-12-12] MEDS ORDERED: SODIUM BICARB IV SCH (11:00)
[2016-12-12] MEDS ORDERED: DEXTROSE 5% IV SCH (11:00)
[2016-12-12] MEDS ORDERED: WATER IV SCH (11:00)
[2016-12-12 11:03] LABS: HCT 19.9 % (39.0-53.0)
--- NOTE | 2016-12-12 11:04 | US ---
EXAMINATION TYPE: US abdomen comp/pelvis limited DATE OF EXAM: 12/12/2016 COMPARISON: Prior in PACS CLINICAL HISTORY: r/o abd bleeding. Patient is post op cardiac surgery. Extremely limited exam due to patient condition. Exam done bedside in the ICU. Exam ended due to patient's vital signs dropping du ring exam. Adelita Alfredo present during exam EXAM MEASUREMENTS: Liver Length: 17.1 cm Gallbladder Wall: 0.2 cm CBD: 0.4 cm Spleen: Not visualized Right Kidney: 11.8 x 6.1 x 6.4 cm Left Kidney: Not visualized Pancreas: Obscured by bowel gas and limited by chest tube Liver: Limited examination. Measuring upper limits of normal. Coarse, heterogeneous echotexture Gallbladder: wnl as visualized CBD: wnl as visualized Spleen: Not visualized on this exam Right Kidney: No hydronephrosis or masses seen Left Kidney: Not visualized on this exam Upper IVC: Unable to visualize on this exam Abd Aorta: wnl as visualized Bladder: Not distended, patient has a catheter Bilateral Jets Seen No, see above Tiny amount of free fluid visualized in the RLQ. Right side possible plural effusion visualized IMPRESSION: 1. Liver is coarse in echo pattern can be seen with fatty infiltration. Hepatitis or diffuse hepatoce llular disease in the differential diagnosis. 2. Limited assessment of the pancreas aorta and IVC.
[2016-12-12 11:08] LABS: Glucose,Whole Blood 119 mg/dL (75-99)
[2016-12-12 11:13] LABS: ABG PH 7.17 (7.35-7.45)
[2016-12-12 11:14] LABS: Calcium 7.6 mg/dL (8.4-10.2); Potassium 5.4 mmol/L (3.5-5.1)
[2016-12-12 11:14] LABS: ABG Base Excess -12.7 mmol/L; ABG HCO3 14 mmol/L (21-25); ABG Oxygen Saturation 74.2 % (94-97); ABG PCO2 40 mmHg (35-45); ABG PO2 49 mmHg (83-108); ABG TCO2 15 mmol/L (19-24)
[2016-12-12 11:42] LABS: Add Differential Manual Differential
[2016-12-12 11:45] LABS: Nucleated Red Blood Cells 0 /100 WBC (0-0)
[2016-12-12 11:47] LABS: Band Neutrophils % 14 %; Manual Review Performed; Total Cells Counted 200
[2016-12-12 11:48] LABS: ABG HCO3 19 mmol/L (21-25); ABG PCO2 55 mmHg (35-45); ABG PH 7.15 (7.35-7.45); ABG PO2 61 mmHg (83-108)
[2016-12-12 11:49] LABS: ABG Base Excess -8.8 mmol/L; ABG Oxygen Saturation 82.7 % (94-97); ABG TCO2 20 mmol/L (19-24)
[2016-12-12 11:50] LABS: Spherocytes Present
[2016-12-12] MEDS ORDERED: EPINEPHrine 2 MG in DEXTROSE 5% IN WATER 250 ML IV SCH ×2 (12:00)
[2016-12-12] MEDS ORDERED: SODIUM CHLORIDE 0.9% 99 ML with VASOPRESSIN 20 UNIT IV SCH ×2 (12:00)
[2016-12-12] MEDS ORDERED: SODIUM BICARB IV ONE (12:00)
[2016-12-12] MEDS ORDERED: WATER IV ONE (12:00)
[2016-12-12] MEDS ORDERED: DEXTROSE 5% IV ONE (12:00)
[2016-12-12] MEDS ORDERED: EPINEPHrine 10 ML SYRINGE (0.1 MG/ML) ONE ×2 (12:07→13:14)
[2016-12-12] MEDS ORDERED: VANCOMYCIN 1,000 MG in SODIUM CHLORIDE 0.9% 250 ML IVPB STA (12:08)
[2016-12-12] MEDS ORDERED: DOPamine DRIP 500 ML IV ONE (12:33)
--- NOTE | 2016-12-12 12:38 | OP ---
OPERATIVE REPORT DATE OF SURGERY: 12/11/2016 PREOPERATIVE DIAGNOSIS: 1. Severe aortic valve stenosis. 2. Coronary artery disease. POSTOPERATIVE DIAGNOSE: 1. Severe aortic valve stenosis. 2. Coronary artery disease. PROCEDURE: 1. Aortic valve replacement using 23 mm Hernández Magna Ease bioprosthetic valve. 2. Coronary bypass grafting x2 vessels (left internal mammary artery to left anterior descending artery, saphenous vein graft to the obtuse marginal artery). 3. Endoscopic vein harvest bilateral greater saphenous vein. 4. Epiaortic ultrasound. 5. Ligation of left atrial appendage using 40 mm Atriclip. 6. Transesophageal echocardiogram. SURGEON: Carlo Lam MD. [employer]: 1. JOHNATHAN Wyatt. 2. Robert Reddy NP. ANESTHESIA: General. COMPLICATIONS: None. SPECIMEN: Aortic valve leaflets. INDICATION: The patient is an 81-year-old male with a past medical history significant for coronary artery disease, hyperlipidemia, hypertension, osteoarthritis, and a remote history of tobacco use who reports progressive fatigue and dyspnea. Echocardiogram reveals severe aortic valve stenosis, which has progressed since his previous study. Cardiac catheterization was also performed which revealed multivessel coronary artery disease. In the past, attempts at crossing the LAD stenosis with a wire were unsuccessful. Aortic valve replacement along with coronary artery bypass were recommended. The risks, benefits, and alternatives of these procedures including but not limited to the risk of stroke, infection, bleeding, need for blood transfusion, pneumonia, need for permanent pacemaker, and were discussed with the patient and his family members. All their questions were answered. Consent was obtained. FINDINGS: The aortic valve was trileaflet and heavily calcified. The LAD contained disease proximally but measured 1.5 mm distally. The obtuse marginal artery measured 1.3 mm. The diagonal artery was heavily diseased and calcified and not amenable to bypass. PROCEDURE IN DETAIL: The patient was taken to the operating room and placed supine on the operating table. After induction of general anesthesia, he was prepped and draped in the usual sterile fashion. Kensal-Jose catheter was placed and his PA pressures were in the mid 40s with a cardiac index of 2.0. Transesophageal echocardiogram confirmed preserved ejection fraction along with severe aortic valve stenosis. There was also moderate, centrally directed mitral regurgitation. A median sternotomy was performed. The left internal mammary artery was harvested in the standard fashion taking care to clip all branches. Intravenous heparin was administered. The vessel was transected distally revealing brisk flow. Simultaneously greater saphenous vein was harvested from the right lower extremity. Below the knee, the vein actually contained calcified plaque and was unusable. Vein in the right thigh was felt to be usable. Additional vein was then harvested from the left thigh, which was marginal. A pericardial cradle was created. The ascending aorta was palpated and appeared to be free of obvious calcific disease. There was some disease noted at the takeoff of the innominate artery. Epiaortic ultrasound was then performed. Again no significant calcific plaque or atheromatous disease was noted in the ascending aorta. Plaque was noted at the takeoff of the innominate artery. An arterial cannula was then placed in a soft spot on the underside of the distal ascending aorta. A venous cannula was placed through the right atrial appendage and directed into the IVC. Antegrade and retrograde catheters were placed as well. The patient was placed on cardiopulmonary bypass with good decompression of the heart. The left atrial appendage was measured and a 40 mm Atriclip device was placed across the base of left atrial appendage. The aortic cross-clamp was applied. Cold blood potassium cardioplegia was delivered in both antegrade and retrograde fashion to achieve arrest of the heart. Of note, cardioplegia was delivered every 15-20 minutes while the patient remained under crossclamp. A sump drain was then placed via the right superior pulmonary vein into the left atrium. I began by inspecting the lateral wall. The distal obtuse marginal artery was identified. It appeared to be amenable to bypass. An arteriotomy was created. The vessel accepted a 1 mm probe. Using saphenous vein in a reverse fashion, an end-to-side anastomosis was created. This was performed using a running 7-0 Prolene suture. The graft was hemostatic and had great flow. Next the diagonal artery was identified. It was heavily calcified. It was dissected free for a portion but I did not feel that it was amenable to bypass. The LAD was identified distally. A soft spot for bypass was chosen. An arteriotomy was created. This vessel accepted a 1.5 mm probe distally but had a significant lesion just proximal to the arteriotomy. Using the left internal mammary artery, an end-to-side anastomosis was created. This was performed with a running 8-0 Prolene suture. The graft was hemostatic. The mammary pedicle was then tacked down to the anterior surface of the heart. Attention was then turned to the aortic valve. CO2 was administered over the surface of the operative field. An incision was made in the ascending aorta. It was extended into a hockey-stick formation heading inferiorly down to the noncoronary cusp. The aortic valve was identified. It was heavily calcified and trileaflet. The aortic valve leaflets were then excised carefully using scissors. It was sent to pathology. Remaining calcium located around the annulus was meticulously debrided using rongeurs and a scalpel. The aortic root was then copiously irrigated with cold saline solution. The annulus was sized and a 23 mm Hernández Magna Ease bioprosthetic aortic valve was chosen. Pledgeted sutures were placed circumferentially around the annulus. The sutures were then passed through the sewing ring. The prosthetic aortic valve was lowered into place. The sutures were tied. The valve appeared to seat nicely along the annulus. Rewarming was initiated. The ascending aorta was thin walled. The aortotomy was closed using a double layer of running 4-0 prolene suture reinforced with felt strips. Finally the proximal anastomosis was performed to the obtuse marginal artery in an end-to-side fashion using running 6-0 Prolene suture. The heart was then de-aired in the standard fashion. Lidocaine and magnesium were administered. The aortic cross-clamp was removed. The vein graft to the obtuse marginal artery was deaired. Temporary atrial and ventricular pacing wires were placed. An additional atrial wire was placed as well. Additional deairing maneuvers were then performed on the heart. Transesophageal echocardiogram revealed no significant intracardiac air. The LV sump and retrograde catheters were removed. The patient was then weaned off cardiopulmonary bypass. He without difficulty. Followup transesophageal echocardiogram revealed a normal left ventricular ejection fraction and good function of the prosthetic aortic valve. There was no perivalvular leak noted. The RV appeared to be normal. It should be noted that the patient appeared to have slight worsening of his moderate mitral regurgitation upon initially coming off bypass. With volume and time, this eventually resolved back to mild regurgitation. We actually had Dr. Gauthier come to the room to read the echo. He agreed that it appeared to be mild mitral regurgitation. The PA pressures at this time were in the high 40s to low 50s. Protamine was administered. I did spend a fair amount of time drying up the diffuse oozing. The patient had a coagulopathy, but also had some bleeding from the muscle on the back surface of the heart, which was treated with pledgeted sutures. The remainder of the cannulas were removed without difficulty. All surgical sites were inspected and appeared to be hemostatic. Reinforcement sutures were placed as needed. Soft tissues were approximated over the ascending aorta as well as over the apex of the heart. A straight 32-Trinidadian chest tube was placed directed in left pleural space. A right angle 32- Trin[place] chest tube was placed and directed into a retrocardiac position. A straight 36-Trinidadian chest tube was placed and directed into the mediastinum. These were all secured to the skin using sutures. The sternum was then reapproximated using stainless steel wires in a figure- of-eight fashion. The remainder of the wound was closed in layers. A sterile dressing was applied. The patient appeared to have tolerated the procedure well. There were no immediate complications. He returned to the ICU on low-dose Levophed and low- dose phenylephrine. MMODL / IJN: [id number] / GRAHAM
[2016-12-12 12:41] VITALS: RESP 16; TEMP 95.9
[2016-12-12] MEDS ORDERED: ALBUMIN HUMAN 5% 500 ML in EMPTY BAG 1 BAG IVPB STA (12:43)
[2016-12-12] MEDS: MUPIROCIN 2% OINT 22 GM TUBE NASAL SCH (12:49)
--- NOTE | 2016-12-12 13:07 | P.CNPUL ---
History of Present Illness Consult date: 12/12/16 Requesting physician: Carlo Lam Reason for consult: other (Status post aortic valve replacement, CABG 2, ligation of left atrial appendage.) Chief complaint: Severe aortic stenosis and underlying coronary artery disease. History of present illness: This is an 81-year-old white male with symptomatic multivessel coronary artery disease, severe aortic stenosis, primarily a patient with Dr. Stokes. On 2016, patient was seen by cardiac surgery on consultation after his elective cardiac catheterization and BRADLEY. Patient has been complaining of progressive fatigue, dyspnea, and some lower extremity edema. Has also been complaining of pain between his shoulders. His pain was relieved with nitroglycerin sublingually. Repeat cardiac catheterization recently showed 50% stenosis in RCA, 90% stenosis of circumflex artery, 90% proximal LAD stenosis. BRADLEY revealed severe aortic stenosis with a peak gradient of 90 mmHg, and mean gradient of 58. His LV function was normal. Considering the recent findings on the BRADLEY and cardiac catheterization report, patient was advised to undergo CABG and aortic valve replacement. Surgery was performed on 12/11/2016, patient was admitted to the ICU in the evening and I received a call after midnight regarding his ventilator settings and abnormal ABG reflecting a picture of metabolic and respiratory acidosis. His oxygenation was excellent. However for his acidosis I recommended switching the patient to assist control mode from IMV mode and increased her rate to 16 instead of 12. I also recommended an amp of bicarb for mild metabolic acidosis. During occupational therapist per diem hours, patient has been taking a downhill course, and has been requiring significant amount of blood for a low hemoglobin. During my evaluation this morning, I found out that the patient has already received a total of 9 units of packed RBCs, bleeding from the mediastinal tubes and chest tubes is not enough to explain all the blood loss. Coffee-ground material was noted in the nasogastric tube, however it was not enough to explain all that blood loss. In spite of all the blood transfusions, his hemoglobin this morning was 7.1. Patient has been developing worsening metabolic acidosis and received multiple amps of sodium bicarb. He was also placed on a sodium bicarb drip. As a matter of fact while I was evaluating the patient and I spent probably at least 2 hours at bedside, patient lost his pulse, and we had the code the patient. Responded to the second amp of epinephrine during the code. However later on the patient developed hypotension again, and another amp of epinephrine was given, patient was also placed on epinephrine drip. In order to evaluate the blood loss, patient is not stable enough to be sent down for a CT of the abdomen and pelvis, ultrasound of the abdomen was done, and could not pinpoint a specific source of intra-abdominal bleed. However the possibility of ischemic bowel and GI bleeding is definitely in the differential considering the amount of blood transfusions given and could not be explained by the findings of the bleeding from the chest tubes and from the nasogastric tube. Considering the acidosis, I believe this is an ischemic bowel picture, however the patient is not in any shape or form to tolerate any surgical intervention at this point. He is profoundly unstable for any intervention or even transfer out of the ICU. His cardiac surgeon was made aware of all the updates and the issues with the patient. And he was communicating all along with his nurse practitioner baby regarding his condition. I recommended cryoprecipitate also recommended workup for possible DIC. In the last few hours, the patient received multiple amps of sodium bicarb. Remained on sodium bicarb drip, received multiple infusions of albumin, epinephrine, and epinephrine drip. Patient was also placed at one point on norepinephrine drip as high as 50 mcg/ m. Overall, the clinical picture does not seem to be very promising, family will be made aware about his condition. Review of Systems ROS unobtainable: due to endotracheal tube Past Medical History Past Medical History: Coronary Artery Disease (CAD), Hyperlipidemia, Hypertension, Osteoarthritis (OA) Additional Past Medical History / Comment(s): Severe aortic stenosis, shoulder pain. History of Any Multi-Drug Resistant Organisms: None Reported Past Surgical History: Back Surgery, Heart Catheterization, Hernia Repair, Joint Replacement Additional Past Surgical History / Comment(s): Bilateral knee replacements, bilateral cataract surgery, recent Heart cath Past Anesthesia/Blood Transfusion Reactions: Previous Problems w/ Anesthesia Additional Past Anesthesia/Blood Transfusion Reaction / Comment(s): Was told had a reaction to Sodium Pentothal during a surgery, states unaware of what reaction was. Past Psychological History: No Psychological Hx Reported Smoking Status: Former smoker Past Alcohol Use History: None Reported Additional Past Alcohol Use History / Comment(s): Smoked in his 20's, none since. Past Drug Use History: None Reported - Past Family History Father Family Medical History: Cancer Additional Family Medical History / Comment(s): Prostate cancer. Brother(s) Family Medical History: Coronary Artery Disease (CAD) Additional Family Medical History / Comment(s): Brother who of premature coronary artery disease at 45 years old Medications and Allergies Home Medications Medication Instructions Recorded Confirmed Type Acetaminophen [Tylenol Extra 500 mg PO Q6H PRN 11/21/16 12/11/16 History Strength] Acetaminophen [Tylenol] 650 mg PO Q4H PRN 11/21/16 12/11/16 History Aspirin [Adult Low Dose Aspirin EC] 81 mg PO DAILY 11/21/16 12/11/16 History Atenolol 25 mg PO DAILY@1200 11/21/16 12/11/16 History Atorvastatin [Lipitor] 40 mg PO HS 11/21/16 12/11/16 History Felodipine [Felodipine ER] 5 mg PO BID 11/21/16 12/11/16 History Hydrochlorothiazide 12.5 mg PO DAILY 11/21/16 12/11/16 History Meloxicam 15 mg PO DAILY 11/21/16 12/11/16 History Methocarbamol [Robaxin] 750 mg PO TID 11/21/16 12/11/16 History Nitroglycerin Sl Tabs [Nitrostat] 0.4 mg SUBLINGUAL Q5M PRN 11/21/16 12/11/16 History [place]-3 Fatty Acids/Fish Oil [Fish 1 cap PO DAILY 11/21/16 12/11/16 History Oil 1,000 mg Softgel] Omeprazole 20 mg PO BID 11/21/16 12/11/16 History traMADol HCL [Ultram] 100 mg PO QID PRN 11/21/16 12/11/16 History Mupirocin 2% Nasal Oint [Bactroban 1 applic NASAL BID #30 applic 11/27/16 Rx 2% Nasal Oint] Isosorbide Mononitrate ER [Imdur] 60 mg PO BID 12/11/16 12/11/16 History Allergies Allergy/AdvReac Type Severity Reaction Status Date / Time Penicillins Allergy Rash/Hives Verified 12/06/16 10:09 sodium pentothol Allergy Unknown Uncoded 12/06/16 10:09 Physical Exam Vitals: Vital Signs Temp Pulse Pulse Resp BP Pulse Ox 12/12/16 12:40 95.9 F L 90 16 85/33 12/12/16 11:13 96.1 F L 137 H 15 144/41 12/12/16 09:44 95.5 F L 79 20 45/29 12/12/16 09:34 97.2 F L 96 20 102/40 94 L 12/12/16 09:32 97.3 F L 95 20 110/43 12/12/16 09:07 97.3 F L 96 20 111/42 94 L 12/12/16 08:46 98.1 F 91 25 H 64/31 93 L 12/12/16 08:45 98.6 F 103 H 20 81/40 97 12/12/16 07:30 99 16 110/63 97 12/12/16 07:23 98 12/12/16 07:00 98.6 F 102 H 16 106/58 96 12/12/16 06:30 99 16 83/54 100 12/12/16 06:20 98.2 F 100 16 111/45 98 12/12/16 06:00 100 16 107/51 96 12/12/16 05:50 98.2 F 100 16 105/48 98 12/12/16 05:40 98.2 F 100 16 95/50 98 12/12/16 05:30 100 16 103/49 94 L 12/12/16 05:00 100 16 89/47 98 12/12/16 04:30 99 16 88/48 100 12/12/16 04:00 98 75 12 97/53 98 12/12/16 03:30 100 12 102/49 100 12/12/16 03:16 100 12/12/16 03:00 98 12 104/55 97 12/12/16 02:30 95 12 61/46 89 L 12/12/16 02:00 98 12 97/53 92 L 12/12/16 01:30 101 H 12 95/56 92 L 12/12/16 01:00 98.2 F 100 12 109/57 100 12/12/16 00:30 105 H 12 111/65 97 12/12/16 00:00 98.1 F 103 H 75 12 115/66 100 12/11/16 23:30 92 12 120/67 100 12/11/16 23:21 92 12/11/16 23:08 91 12/11/16 23:00 97.5 F L 96 12 100/63 100 09/06/17 22:30 91 12 118/66 100 12/11/16 22:29 91 118/66 100 12/11/16 22:00 97.5 F L 88 12 109/63 100 12/11/16 21:30 97.2 F L 90 12 136/73 100 12/11/16 21:21 97 F L 87 12 154/58 12/11/16 21:00 97 F L 84 12 124/68 100 12/11/16 20:30 96.8 F L 85 12 124/68 100 12/11/16 20:26 97 F L 87 12 140/55 100 12/11/16 20:05 90 12/11/16 20:00 96.6 F L 84 75 12 124/68 100 12/11/16 19:56 96.6 F L 88 12 120/65 100 12/11/16 19:54 84 12/11/16 19:50 86 124/68 12/11/16 19:46 96.6 F L 88 18 115/47 96 12/11/16 19:40 89 124/68 100 12/11/16 19:30 89 116/63 100 12/11/16 19:20 89 138/74 91 L 12/11/16 19:10 89 138/74 93 L 12/11/16 19:00 89 138/74 93 L 12/11/16 18:54 95.6 F L 90 18 124/52 96 12/11/16 18:50 89 138/74 12/11/16 18:40 89 138/74 12/11/16 18:30 97 Intake and Output 12/11/16 12/12/16 12/12/16 22:59 06:59 14:59 Intake Total 2732.924 4918.468 9452.667 Output Total 3259 1046 70 Balance -526.076 58.703 1203.667 Intake: IV 491.4 1064.2 95 ACETAMINOPHEN IV (For NPO 100 200 ) 1,000 mg In Empty Bag 1 bag @ 400 mls/hr IVPB Q6HR [facility] Rx#:[id number] Amiodarone 450 mg In 132.2 16 Dextrose 5% in Water 250 ml @ 0.5 MG/MIN 16.66 mls /hr IV .Q15H1M [facility] Rx#: [id number] Amiodarone 450 mg In 99.9 Dextrose 5% in Water 250 ml @ 1 MG/MIN 33.33 mls/ hr IV .Q7H31M [facility] Rx#: [id number] CO/CI 60 160 20 Lactated Ringers 1,000 ml 100 400 50 @ 50 mls/hr IV .Q20H [facility] Rx#:[id number] Nitroglycerin-D5w Pmx 50 4.5 mg In Dextrose/Water 1 250ml.bag @ Per Protocol IV ONCE [facility] Rx#:[id number] Pressure Bag 27 72 9 ceFAZolin 2,000 mg In 100 100 Sodium Chloride 0.9% 30 ml @ Per Protocol IVPB ONCE [facility] Rx#:[id number] Intake, IV Titration 107.524 40.503 46.667 Amount Amiodarone 450 mg In 33.3 Dextrose 5% in Water 250 ml @ 1 MG/MIN 33.33 mls/ hr IV .Q7H31M [facility] Rx#: [id number] Clevidipine Butyrate 25 2.067 mg In Empty Bag 1 bag @ 1 MG/HR 2 mls/hr IV .Q24H [facility] Rx#:[id number] Insulin Regular 100 unit 6.794 31.874 2.604 In Sodium Chloride 0.9% 100 ml @ Per Protocol IV .Q0M [facility] Rx#:[id number] Lactated Ringers 1,000 ml 50 @ 50 mls/hr IV .Q20H [facility] Rx#:[id number] Nitroglycerin-D5w Pmx 50 1.5 mg In Dextrose/Water 1 250ml.bag @ Per Protocol IV ONCE ONE Rx#:[id number] Norepinephrin 16 mg-0.9% 6.562 39.375 Ns Pmx 16 mg In 250 ml @ Titrate IV .Q0M [facility] Rx#: [id number] Propofol 1,000 mg In 100 15.93 ml @ Titrate IV .Q0M [facility] Rx#:[id number] Blood Product 2134 0 1132 Ffp 24 Cpd Unit 322 [id number] Ffp 24 Cpd Unit 308 [id number] Platelet Pheresis Acda1 202 Unit [id number] Platelet Pheresis Acda2 264 Unit [id number] Rc As-1 Unit 310 [id number] Rc As-1 Unit 0 310 [id number] Rc As-1 Unit 310 [id number] Rc As-1 Unit 310 [id number] Rc As-1 Unit 0 [id number] Rc As-1 Unit 310 [id number] Rc As-1 Unit 310 [id number] Rc As-3 Unit 310 [id number] Output: Chest Tube Drainage 259 291 40 Chest Tube Left Lateral 17 41 20 Chest Chest Tube Mediastinal 242 250 20 Drainage 400 Right Calf 400 Urine 1000 355 30 Estimated Blood Loss 1999 Other: Voiding Method Indwelling Catheter Indwelling Catheter Weight 98.4 kg ABP, PAP, CO, CI - Last 8 Hours Arterial Blood Pressure 133/60 Arterial Blood Pressure 116/51 Arterial Blood Pressure 120/53 Arterial Blood Pressure 103/43 Arterial Blood Pressure 85/42 Arterial Blood Pressure 95/44 Pulmonary Artery Pressure 35/21 Pulmonary Artery Pressure 31/21 Pulmonary Artery Pressure 31/20 Pulmonary Artery Pressure 30/17 Pulmonary Artery Pressure 27/17 Pulmonary Artery Pressure 30/17 Cardiac Output 3.9 Cardiac Output 3.9 Cardiac Output 4.2 Cardiac Output 4.2 Cardiac Output 3.8 Physical examination revealed an 81-year-old white male, pale looking, sedated, on mechanical ventilation, HEENT: Endotracheal tube and nasogastric tube noted to be intact. No neck masses, no JVD, no thyromegaly. Chest: Diminished breath sound bilaterally, no crackles or rhonchi or wheezes. Cardiac: Normal S1 and S2, 2/6 systolic murmur thought the precordium. Positive rub. Abdomen: Obese, soft, nontender, no megaly, no rebound, no guarding. Diminished bowel sounds. Extremities: Trace of bipedal edema. Neurologic: Cannot be assessed patient is sedated on mechanical ventilation. Results - Laboratory Findings CBC and BMP: 12/12/16 10:47 12/12/16 10:47 ABG ABG pH 7.15 (7.35-7.45) L* 12/12/16 11:40 ABG pCO2 55 mmHg (35-45) H 12/12/16 11:40 ABG pO2 61 mmHg (83-108) L 12/12/16 11:40 ABG O2 Saturation 82.7 % (94-97) L 12/12/16 11:40 PT/INR, D-dimer PT 16.3 sec (9.0-12.0) H 12/12/16 04:05 INR 1.7 (<1.2) H 12/12/16 04:05 Abnormal lab findings: Abnormal Labs 12/06/16 12/11/16 12/11/16 09:48 06:47 10:37 RBC Hgb Hct RDW Plt Count Lymphocytes # Lymphocytes # (Manual) PT INR APTT ABG pH ABG pCO2 ABG pO2 ABG HCO3 ABG Total CO2 ABG O2 Saturation Sodium Potassium Chloride Carbon Dioxide Creatinine Glucose POC Glucose (mg/dL) 103 H 119 H Calcium Ionized Calcium Jesus Magnesium Total Bilirubin AST ALT Alkaline Phosphatase Total Protein Albumin Crossmatch See Detail 12/11/16 12/11/16 12/11/16 11:30 12:01 12:50 RBC Hgb Hct RDW Plt Count Lymphocytes # Lymphocytes # (Manual) PT INR APTT ABG pH ABG pCO2 ABG pO2 ABG HCO3 ABG Total CO2 ABG O2 Saturation Sodium Potassium Chloride Carbon Dioxide Creatinine Glucose POC Glucose (mg/dL) 156 H 245 H 293 H Calcium Ionized Calcium Jesus Magnesium Total Bilirubin AST ALT Alkaline Phosphatase Total Protein Albumin Crossmatch 12/11/16 12/11/16 12/11/16 13:33 14:23 14:49 RBC Hgb Hct RDW Plt Count Lymphocytes # Lymphocytes # (Manual) PT INR APTT ABG pH ABG pCO2 ABG pO2 ABG HCO3 ABG Total CO2 ABG O2 Saturation Sodium Potassium Chloride Carbon Dioxide Creatinine Glucose POC Glucose (mg/dL) 250 H 295 H 238 H Calcium Ionized Calcium Jesus Magnesium Total Bilirubin AST ALT Alkaline Phosphatase Total Protein Albumin Crossmatch 12/11/16 12/11/16 12/11/16 15:25 15:52 17:49 RBC Hgb Hct RDW Plt Count Lymphocytes # Lymphocytes # (Manual) PT INR APTT ABG pH ABG pCO2 ABG pO2 ABG HCO3 ABG Total CO2 ABG O2 Saturation Sodium Potassium Chloride Carbon Dioxide Creatinine Glucose POC Glucose (mg/dL) 194 H 164 H 139 H Calcium Ionized Calcium Jesus Magnesium Total Bilirubin AST ALT Alkaline Phosphatase Total Protein Albumin Crossmatch 12/11/16 12/11/16 12/11/16 18:40 18:40 18:40 RBC 1.93 L Hgb 6.1 L* D Hct 17.8 L* RDW Plt Count 60 L D Lymphocytes # 0.6 L Lymphocytes # (Manual) PT 19.2 H INR 2.0 H APTT 116.9 H* ABG pH ABG pCO2 ABG pO2 ABG HCO3 ABG Total CO2 ABG O2 Saturation Sodium Potassium Chloride Carbon Dioxide Creatinine Glucose 132 H POC Glucose (mg/dL) Calcium 7.1 L Ionized Calcium Jesus 4.2 L Magnesium Total Bilirubin AST ALT Alkaline Phosphatase <20 L Total Protein 3.8 L Albumin 2.6 L Crossmatch 12/11/16 12/11/16 12/11/16 18:40 19:15 19:55 RBC Hgb Hct RDW Plt Count Lymphocytes # Lymphocytes # (Manual) PT INR APTT ABG pH 7.32 L ABG pCO2 ABG pO2 351 H ABG HCO3 ABG Total CO2 ABG O2 Saturation 100.0 H Sodium Potassium Chloride Carbon Dioxide Creatinine Glucose POC Glucose (mg/dL) 151 H 152 H Calcium Ionized Calcium Jesus Magnesium Total Bilirubin AST ALT Alkaline Phosphatase Total Protein Albumin Crossmatch 12/11/16 12/11/16 12/11/16 20:29 20:53 21:00 RBC 2.66 L Hgb 8.2 L D Hct 23.6 L RDW 15.9 H Plt Count 57 L Lymphocytes # Lymphocytes # (Manual) PT 16.2 H INR 1.7 H APTT 86.4 H ABG pH ABG pCO2 ABG pO2 ABG HCO3 ABG Total CO2 ABG O2 Saturation Sodium Potassium Chloride Carbon Dioxide Creatinine Glucose POC Glucose (mg/dL) 164 H Calcium Ionized Calcium Jesus Magnesium Total Bilirubin AST ALT Alkaline Phosphatase Total Protein Albumin Crossmatch 12/11/16 12/11/16 12/11/16 21:00 21:52 22:10 RBC Hgb Hct RDW Plt Count Lymphocytes # Lymphocytes # (Manual) PT INR APTT ABG pH 7.23 L ABG pCO2 52 H ABG pO2 123 H ABG HCO3 ABG Total CO2 ABG O2 Saturation 98.0 H Sodium Potassium Chloride 109 H Carbon Dioxide 21 L Creatinine Glucose 136 H POC Glucose (mg/dL) 145 H Calcium 7.0 L Ionized Calcium Jesus Magnesium Total Bilirubin AST ALT Alkaline Phosphatase Total Protein Albumin Crossmatch 12/11/16 12/11/16 12/12/16 23:06 23:57 00:57 RBC Hgb Hct RDW Plt Count Lymphocytes # Lymphocytes # (Manual) PT INR APTT ABG pH ABG pCO2 ABG pO2 ABG HCO3 ABG Total CO2 ABG O2 Saturation Sodium Potassium Chloride Carbon Dioxide Creatinine Glucose POC Glucose (mg/dL) 188 H 178 H 217 H Calcium Ionized Calcium Jesus Magnesium Total Bilirubin AST ALT Alkaline Phosphatase Total Protein Albumin Crossmatch 12/12/16 12/12/16 12/12/16 01:56 03:16 04:01 RBC Hgb Hct RDW Plt Count Lymphocytes # Lymphocytes # (Manual) PT INR APTT ABG pH ABG pCO2 ABG pO2 ABG HCO3 ABG Total CO2 ABG O2 Saturation Sodium Potassium Chloride Carbon Dioxide Creatinine Glucose POC Glucose (mg/dL) 223 H 222 H 160 H Calcium Ionized Calcium Jesus Magnesium Total Bilirubin AST ALT Alkaline Phosphatase Total Protein Albumin Crossmatch 12/12/16 12/12/16 12/12/16 04:05 04:05 04:05 RBC 2.26 L Hgb 6.7 L* D Hct 20.4 L RDW 17.3 H Plt Count 66 L Lymphocytes # Lymphocytes # (Manual) PT 16.3 H INR 1.7 H APTT ABG pH ABG pCO2 ABG pO2 ABG HCO3 ABG Total CO2 ABG O2 Saturation Sodium Potassium 5.3 H Chloride 108 H Carbon Dioxide 17 L Creatinine Glucose 140 H POC Glucose (mg/dL) Calcium 7.0 L Ionized Calcium Jesus 4.4 L Magnesium 2.4 H Total Bilirubin 1.4 H AST 216 H ALT 162 H Alkaline Phosphatase 23 L Total Protein 4.1 L Albumin 2.9 L Crossmatch 12/12/16 12/12/16 12/12/16 04:15 05:51 08:04 RBC Hgb Hct RDW Plt Count Lymphocytes # Lymphocytes # (Manual) PT INR APTT ABG pH 7.10 L* ABG pCO2 57 H 32 L ABG pO2 112 H ABG HCO3 17 L 17 L ABG Total CO2 18 L ABG O2 Saturation 98.2 H Sodium Potassium Chloride Carbon Dioxide Creatinine Glucose POC Glucose (mg/dL) 118 H Calcium Ionized Calcium Jesus Magnesium Total Bilirubin AST ALT Alkaline Phosphatase Total Protein Albumin Crossmatch 12/12/16 12/12/16 12/12/16 08:31 09:01 09:20 RBC 2.39 L Hgb 7.2 L Hct 21.3 L RDW 16.7 H Plt Count 42 L* Lymphocytes # Lymphocytes # (Manual) PT INR APTT ABG pH ABG pCO2 ABG pO2 ABG HCO3 ABG Total CO2 ABG O2 Saturation Sodium Potassium Chloride Carbon Dioxide Creatinine Glucose POC Glucose (mg/dL) 72 L 57 L Calcium Ionized Calcium Jesus Magnesium Total Bilirubin AST ALT Alkaline Phosphatase Total Protein Albumin Crossmatch 12/12/16 12/12/16 12/12/16 09:40 10:44 10:47 RBC Hgb Hct RDW Plt Count Lymphocytes # Lymphocytes # (Manual) PT INR APTT ABG pH 7.23 L ABG pCO2 ABG pO2 ABG HCO3 14 L ABG Total CO2 15 L ABG O2 Saturation Sodium 147 H Potassium 5.4 H Chloride 109 H Carbon Dioxide 18 L Creatinine 1.42 H Glucose 58 L POC Glucose (mg/dL) 69 L Calcium 7.6 L Ionized Calcium Jesus 4.0 L Magnesium Total Bilirubin AST ALT Alkaline Phosphatase Total Protein Albumin Crossmatch 12/12/16 12/12/16 12/12/16 10:47 11:04 11:06 RBC 2.30 L Hgb 7.1 L Hct 19.9 L* RDW 15.6 H Plt Count 25 L* Lymphocytes # Lymphocytes # (Manual) 0.94 L PT INR APTT ABG pH 7.17 L* ABG pCO2 ABG pO2 49 L ABG HCO3 14 L ABG Total CO2 15 L ABG O2 Saturation 74.2 L Sodium Potassium Chloride Carbon Dioxide Creatinine Glucose POC Glucose (mg/dL) 119 H Calcium Ionized Calcium Jesus Magnesium Total Bilirubin AST ALT Alkaline Phosphatase Total Protein Albumin Crossmatch 12/12/16 11:40 RBC Hgb Hct RDW Plt Count Lymphocytes # Lymphocytes # (Manual) PT INR APTT ABG pH 7.15 L* ABG pCO2 55 H ABG pO2 61 L ABG HCO3 19 L ABG Total CO2 ABG O2 Saturation 82.7 L Sodium Potassium Chloride Carbon Dioxide Creatinine Glucose POC Glucose (mg/dL) Calcium Ionized Calcium Jesus Magnesium Total Bilirubin AST ALT Alkaline Phosphatase Total Protein Albumin Crossmatch - Diagnostic Findings Chest x-ray: image reviewed (Postoperative changes noted on the chest x-ray, and small left pleural effusion noted.) Additional studies: Ultrasound of the abdomen and pelvis showed no evidence of hematoma or free fluid in the abdomen. Assessment and Plan Plan: Impression: 1 status post aortic valve replacement and two-vessel CABG, postoperative day # 1. 2 profound anemia, requiring multiple transfusions including 9 units of packed RBCs, platelets, cryoprecipitate, unexplained by the amount of bleeding noted from the chest and mediastinal tubes, also unexplained by the amount of coffee- ground material noted in the nasogastric tube. Possibility of bleeding into the GI tract is very likely, possibility of ischemic bowel is also very likely in the differential. However the patient at this point is not stable enough for any surgical intervention considering his profound hypotension and hemodynamic instability. 3 profound metabolic acidosis, secondary to hypoperfusion, and possibly ischemic bowel. Patient will remain on sodium bicarb drip, and considering the patient did not respond to multiple fluid and albumin boluses, we have no choice but to use norepinephrine and norepinephrine to maintain an adequate blood pressure. 4 status post cardiac arrest and code as per ACLS protocol, patient responded to 2 ampules of epinephrine. 5 multiple comorbidities including history of coronary artery disease, severe aortic stenosis, hypertension, osteoarthritis and history of back surgery. Recommendation: Continue present supportive care measures, refer to orders placed on the chart before during and after the code, prognosis is definitely poor and guarded. Family will be made aware of the overall prognostic picture at this point. His cardiac surgeon is well aware of that condition and the issues we are dealing with at this point. Critical care time is 75 minutes. Time with Patient: Greater than 30
--- NOTE | 2016-12-12 13:13 | ECHOF ---
Referral Reason:eval for effusion MEASUREMENTS -------- HEIGHT: 172.7 cm WEIGHT: 98.0 kg BP: 76/31 FINDINGS -------- Limited Study There is moderate concentric left ventricular hypertrophy. Overall left ventricular systolic function is normal with, an EF between 55 - 60 %. The aortic valve was not well visualized. There is no pericardial effusion. CONCLUSIONS -------- 1. Limited Study 2. Overall left ventricular systolic function is normal with, an EF between 55 - 60 %. 3. The aortic valve was not well visualized. 4. There is no pericardial effusion. [employer]: Kyleigh Robert RDCS
[2016-12-12] MEDS ORDERED: CALCIUM CHLORIDE 100 MG/ML 10 ML SYRINGE ONE (13:14)
[2016-12-12] MEDS ORDERED: SODIUM BICARB 8.4% 50 ML SYR (1 MEQ/ML) ONE (13:14)
[2016-12-12 14:02] LABS: ABG Base Excess -2.2 mmol/L; ABG HCO3 21 mmol/L (21-25); ABG Hematocrit 37 % (34.0-46.0); ABG PCO2 32 mmHg (35-45); ABG PH 7.43 (7.35-7.45); ABG PO2 382 mmHg (83-108); ABG TCO2 22 mmol/L (19-24)
[2016-12-12 14:03] LABS: ABG Base Excess -1.9 mmol/L; ABG HCO3 22 mmol/L (21-25); ABG Hematocrit 37 % (34.0-46.0); ABG Oxygen Saturation 99.8 % (94-97); ABG PCO2 36 mmHg (35-45); ABG PO2 213 mmHg (83-108); ABG TCO2 23 mmol/L (19-24)
[2016-12-12 14:04] LABS: ABG Base Excess -0.5 mmol/L; ABG HCO3 24 mmol/L (21-25); ABG Hematocrit 27 % (34.0-46.0); ABG Oxygen Saturation 99.9 % (94-97); ABG PCO2 40 mmHg (35-45); ABG PH 7.39 (7.35-7.45); ABG PO2 356 mmHg (83-108); ABG TCO2 25 mmol/L (19-24)
[2016-12-12 14:05] LABS: ABG Base Excess -1.6 mmol/L; ABG HCO3 23 mmol/L (21-25); ABG Hematocrit 24 % (34.0-46.0); ABG Oxygen Saturation 99.9 % (94-97); ABG PCO2 40 mmHg (35-45); ABG PH 7.38 (7.35-7.45); ABG PO2 292 mmHg (83-108); ABG TCO2 24 mmol/L (19-24)
[2016-12-12 14:06] LABS: ABG Base Excess -2.7 mmol/L; ABG HCO3 22 mmol/L (21-25); ABG Oxygen Saturation 99.8 % (94-97); ABG PCO2 39 mmHg (35-45); ABG PH 7.36 (7.35-7.45); ABG PO2 232 mmHg (83-108); ABG TCO2 23 mmol/L (19-24)
[2016-12-12 14:07] LABS: ABG PCO2 35 mmHg (35-45); ABG PH 7.41 (7.35-7.45); ABG PO2 252 mmHg (83-108)
[2016-12-12 14:07] LABS: ABG Hematocrit 22 % (34.0-46.0)
[2016-12-12 14:08] LABS: ABG Base Excess -2.2 mmol/L; ABG HCO3 22 mmol/L (21-25); ABG Hematocrit 19 % (34.0-46.0); ABG Oxygen Saturation 99.9 % (94-97); ABG TCO2 23 mmol/L (19-24)
[2016-12-12 14:09] LABS: ABG Base Excess -4.7 mmol/L; ABG HCO3 22 mmol/L (21-25); ABG Hematocrit 25 % (34.0-46.0); ABG Oxygen Saturation 99.9 % (94-97); ABG PCO2 53 mmHg (35-45); ABG PH 7.24 (7.35-7.45); ABG PO2 309 mmHg (83-108); ABG TCO2 24 mmol/L (19-24)
[2016-12-12 14:10] LABS: ABG Base Excess -3.4 mmol/L; ABG HCO3 21 mmol/L (21-25); ABG Oxygen Saturation 99.9 % (94-97); ABG PCO2 38 mmHg (35-45); ABG PH 7.37 (7.35-7.45); ABG PO2 290 mmHg (83-108); ABG TCO2 22 mmol/L (19-24)
[2016-12-12 14:11] LABS: ABG Base Excess -4.6 mmol/L; ABG HCO3 22 mmol/L (21-25); ABG Oxygen Saturation 99.5 % (94-97); ABG PCO2 49 mmHg (35-45); ABG PH 7.27 (7.35-7.45); ABG PO2 193 mmHg (83-108); ABG TCO2 23 mmol/L (19-24)
[2016-12-12 14:11] LABS: ABG Hematocrit 20 % (34.0-46.0)
[2016-12-12 14:12] LABS: ABG Hematocrit 23 % (34.0-46.0)
[2016-12-12 14:13] LABS: ABG Base Excess -5.4 mmol/L; ABG HCO3 21 mmol/L (21-25); ABG Hematocrit 28 % (34.0-46.0); ABG Oxygen Saturation 98.9 % (94-97); ABG PCO2 46 mmHg (35-45); ABG PH 7.28 (7.35-7.45); ABG PO2 146 mmHg (83-108); ABG TCO2 22 mmol/L (19-24)
[2016-12-12 14:14] LABS: ABG Base Excess -5.7 mmol/L; ABG HCO3 19 mmol/L (21-25); ABG Hematocrit 17 % (34.0-46.0); ABG Oxygen Saturation 99.4 % (94-97); ABG PCO2 34 mmHg (35-45); ABG PH 7.36 (7.35-7.45); ABG PO2 156 mmHg (83-108); ABG TCO2 20 mmol/L (19-24)
[2016-12-12 14:15] LABS: ABG Base Excess -6.8 mmol/L; ABG HCO3 19 mmol/L (21-25); ABG PCO2 43 mmHg (35-45); ABG PH 7.27 (7.35-7.45); ABG PO2 77 mmHg (83-108); ABG TCO2 20 mmol/L (19-24)
[2016-12-12 14:16] LABS: ABG Hematocrit 18 % (34.0-46.0); ABG Oxygen Saturation 93.2 % (94-97)
[2016-12-12] MEDS ORDERED: HYDROcodone/APAP 5-325MG 1 EACH TAB PO PRN ×2 (14:32)
[2016-12-12] MEDS ORDERED: MAGNESIUM HYDROXIDE 2,400 MG/10 ML CUP PO PRN (14:33)
[2016-12-12] MEDS ORDERED: BISACODYL 10 MG SUPP RECTAL PRN (14:33)
[2016-12-12] MEDS ORDERED: IPRATROPIUM-ALBUTEROL 3 ML NEB INHALATION PRN (14:34)
[2016-12-12 15:33] VITALS: BP 51/35
[2016-12-12 15:41] VITALS: PULSE 75
--- NOTE | 2016-12-12 15:55 | P.PN ---
Progress Note - Text Severe aortic valve stenosis, coronary artery disease. Postop day 1 elective aortic valve replacement using a 23 mm Hernández magna ease bioprosthetic valve. Coronary artery bypass grafting 2 vessels, left internal mammary artery to left anterior descending artery, reverse saphenous vein graft to the obtuse marginal artery. Endoscopic vein harvest bilateral greater saphenous vein. Epi-aortic ultrasound. Ligation of the left atrial appendage using a 40 mm Atriclip. Intraoperative transesophageal echocardiogram. Upon assessment early this morning the patient remained on mechanical ventilation, assist control mode with an FiO2 50%, tidal volume 500, respiratory rate 16, PEEP of 5. He was on levophed, nitroglycerin drip, insulin drip, and sedation since the previous evening. He was able to open his eyes but was not able to follow any commands. His lungs sounds were diminished bilaterally. He was sinus rhythm to sinus tach with PACs on telemetry. His cardiac output was 3.9 and his index was 1.9. His abdomen was soft, nontender, nondistended with diminished bowel sounds. He had palpable upper extremity pulses, Doppler DP pulses. We discontinued his levophed and nitroglycerin drip and started the patient on Primacor. Shortly thereafter the patient became very hypotensive. Patient was given albumin and was eventually restarted on Levophed. We obtained a stat portable echocardiogram which demonstrated good LV function and no pericardial effusion. We obtained a stat ultrasound of the abdomen which did not demonstrate significant bleeding or free fluid in the abdomen. His chest tubes did not have an excessive amount of drainage. There did not appear to be any sites of massive bleeding. The patient remained hypotensive despite albumin and Levophed , and eventually went into PEA arrest. He was resuscitated successfully after 2 rounds of epinephrine. Over the next several hours he remained acidotic was given multiple doses of sodium bicarb and was started on a bicarbonate drip. He was trialed on dopamine, vasopressin, epinephrine drip and continued to have albumin infused. He received more packed red blood cells and a unit of platelets as well as cryoprecipitate. Despite all of our efforts to correct his acidosis and hypotension the patient went into PEA arrest for a second time and did not recover. Patient's family was updated throughout the morning, and informed of his demise. All questions were answered to the best of our ability.
--- NOTE | 2016-12-12 19:19 | CONS ---
CONSULTATION This is an 81-year-old gentleman with history of severe aortic stenosis, multivessel coronary artery disease, who underwent bypass surgery with aortic valve replacement yesterday. The patient had surgery yesterday and since the time of surgery, patient was hypotensive and required pressors. He gradually became acidotic and this morning had a cardiac arrest with profound hypotension. He had been resuscitated and at the time of my evaluation this morning, he is profoundly hypotensive on epinephrine drip, has a paced rhythm, had an echocardiogram that apparently did not reveal any pericardial effusion and his LV function, we are told, was normal. I am waiting for the official report on the echo. The exact etiology for the hypotension is unclear. The patient has severe acidosis, also. PAST MEDICAL HISTORY: Significant for coronary artery disease and aortic stenosis and hypertension along with dyslipidemia. MEDICATIONS AT HOME: Include: 1. Lipitor. 2. Atenolol. 3. Aspirin. 4. Imdur. 5. Hydrochlorothiazide. ALLERGIES: ALLERGIC TO PENICILLIN FAMILY HISTORY, SOCIAL HISTORY, REVIEW OF SYSTEMS: I am unable to obtain from the patient. EXAM: His blood pressure is low with systolics in the 40s and 50s. Heart rate is around 90 beats per minute. Chest reveals diminished air entry at the bases. Heart revealed First and second heart sounds. I do not hear any murmur. ABDOMEN: Soft. Extremities did not reveal any edema. Peripheral pulses are not palpable. LABS: From today show a hemoglobin of 7.1, platelet count is severely diminished at 25. Prior to surgery, it was 60. Blood gases show a pH of 7.1, pCO2 is 55, bicarb is low, PO2 is 60. The patient has a BUN of 19, creatinine of 1.4. ASSESSMENT: 1. Coronary artery disease status post coronary artery bypass graft. 2. Aortic stenosis status post aortic valve replacement. 3. Cardiogenic shock with profound hypotension, acidosis. 4. Severe thrombocytopenia. PLAN: Patient's prognosis is guarded. Will continue with supportive care, including maintaining the blood pressure. The exact etiology for the perioperative deterioration in his condition is unclear. He has a paced rhythm. I will review the echo once the results are available. MMODL / IJN: [id number] /
--- NOTE | 2016-12-12 20:20 | CONS ---
CONSULTATION DATE OF SERVICE: 12/12/2016. REASON FOR CONSULTATION: Advice regarding hypertension and other medications requested by Dr. Lam. HISTORY OF PRESENT ILLNESS: This 81-year-old gentleman with a past history of hypertension, severe aortic stenosis, history of CAD being followed by Dr. Regalado in the outpatient setting, underwent CABG x2 as well aortic valve replacement by Dr. Lam. The patient had a postoperative hypertension as well as severe acidosis. The patient also on multiple pressors at this time. The patient also had coagulopathy treated with multiple medications as well. Patient mechanically ventilated, intubated. The blood pressure was 45/29 and improving with pressor support. The patient unable to give a coherent history. Most of the history taken by my discussion with staff and review of the chart at this time. PAST MEDICAL HISTORY: History of hypertension, hyperlipidemia, DJD, severe aortic stenosis, DJD, cardiac catheterization. HOME MEDICATIONS PRIOR TO ADMISSION: Home medications are: 1. Ultram 100 mg daily p.r.n. 2. Omeprazole 20 mg p.o. b.i.d. 3. Fish oil 1 orally daily. 4. Nitroglycerin 0.4 sublingual p.r.n. 5. Bactroban 2% b.i.d. 6. Robaxin 750 p.o. t.i.d. 7. Meloxicam 15 mg p.o. t.i.d. 8. Imdur to 60 mg p.o. daily. 9. Hydrochlorothiazide 12.5 mg p.o. daily. 10.Felodipine ER 5 mg p.o. b.i.d. 11.Lipitor 40 mg q.h.s. 12.Atenolol 25 mg p.o. daily. 13.Aspirin 81 mg daily. 14.Tylenol 650 q.4h p.r.n. ALLERGIES: PENICILLIN, SODIUM PENTOTHAL. FAMILY HISTORY: History of cancer, prostate cancer in the family. SOCIAL HISTORY, REVIEW OF SYSTEMS: Could not be taken as the patient is mechanically sedated. History of smoking, previous smoking per chart. PHYSICAL EXAM: Pulse is 137, blood pressure 144/41 respiration 15, temperature 96.9, pulse ox is 94% on 70% FiO2. HEENT: Conjunctivae normal. Oral mucosa moist. NECK: No jugular venous distention. CARDIOVASCULAR: S1, S2 muffled. RESPIRATORY: Breath sounds diminished in the bases. A few scattered rhonchi. ABDOMEN: Soft. No guarding. No rigidity. Bowel sounds diminished. LEGS: No edema. No swelling. NERVOUS SYSTEM: Patient mechanically sedated. SKIN: No ulcer, rash or bleeding. LABS: WBC 7.2, hemoglobin 7.1, INR 1.7. less than 70 and pH of 7.15. Sodium 147, potassium 5.4. Other labs are noted assessment. ASSESSMENT: 1. Status post coronary artery bypass graft as well as aortic valve replacement. 2. Postoperative hypotension. 3. Severe metabolic acidosis. 4. Coagulopathy. 5. Anemia. 6. Hypertension. 7. Hyperlipidemia. 8. History of coronary artery disease. 9. History of severe aortic stenosis. 10.History of degenerative joint disease. 11.Remote history of nicotine dependence. RECOMMENDATIONS AND DISCUSSION: This 81-year-old gentleman presented with multiple complex medical issues. We will monitor the patient closely, continue with the current medications and symptomatic treatment. I would recommend continuing with pressor support. The patient is also on sodium bicarb drip. The possibility of intestinal ischemia is considered by Dr. Cline. Continue with the management. Monitor the blood sugars closely. The overall prognosis is extremely guarded because of multiple complex medical issues as mentioned earlier. I discussed with family and discussed with the cardiovascular surgery team and will close follow with Dr. Cline, and Cardiothoracic Surgery. Further recommendations to follow. VALERIAL / OTONIELN: [id number] / MTDD
[2016-12-12] MEDS ORDERED: SENNOSIDES-DOCUSATE SODIUM 1 EACH TAB PO SCH (21:00)
--- NOTE | 2016-12-17 11:42 | P.DS ---
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 Consult: post cardiac surgery Do you want consulting provider notified?: Yes 12/12/16 13:04 Consult Physician Routine Consulting Provider: Da Walters Consult Reason/Comments: ischemic bowel Do you want consulting provider notified?: Yes Primary care physician: Emile Regalado [place] Hospital Course: The patient is an 81-year-old male with a past medical history significant for known aortic valve stenosis and coronary artery disease, along with hypertension and hyperlipidemia who was taken to the operating room on 2016 for aortic valve replacement using a 23 mm Hernández magna ease bioprosthetic valve and two-vessel bypass. Please refer to the patient's chart for more specific details of his hospital course. He returned to the ICU in the evening of 12/11/2016 following his surgical intervention. He was initially quite stable on minimal pressor support and a reasonable cardiac index. Over the course of the night however, he became more and more acidotic despite the administration of bicarbonate and fluid resuscitation. He was also requiring increased pressor support but continued to make urine. His chest x- ray in the morning was clear. A stat echocardiogram was obtained which did not reveal any pericardial effusion and a preserved left ventricular ejection fraction. Despite medical management and escalation of his pressor support, he continued to decline. He eventually developed pulseless electro activity and CPR was performed. Despite these maneuvers, the patient did not recover and he in the morning of 12/12/2016. An autopsy was offered however the family declined. Plan - Discharge Summary New Discharge Prescriptions: No Action Acetaminophen [Tylenol] 650 mg PO Q4H PRN PRN Reason: Pain Atorvastatin [Lipitor] 40 mg PO HS traMADol HCL [Ultram] 100 mg PO QID PRN PRN Reason: Pain Nitroglycerin Sl Tabs [Nitrostat] 0.4 mg SUBLINGUAL Q5M PRN PRN Reason: Chest Pain Methocarbamol [Robaxin] 750 mg PO TID Omeprazole 20 mg PO BID [place]-3 Fatty Acids/Fish Oil [Fish Oil 1,000 mg Softgel] 1 cap PO DAILY Meloxicam 15 mg PO DAILY Hydrochlorothiazide 12.5 mg PO DAILY Felodipine [Felodipine ER] 5 mg PO BID Atenolol 25 mg PO DAILY@1200 Aspirin [Adult Low Dose Aspirin EC] 81 mg PO DAILY Acetaminophen [Tylenol Extra Strength] 500 mg PO Q6H PRN PRN Reason: Pain Mupirocin 2% Nasal Oint [Bactroban 2% Nasal Oint] 1 applic NASAL BID #30 applic Isosorbide Mononitrate ER [Imdur] 60 mg PO BID Discharge Disposition: - Preliminary Cause of Preliminary Cause of : refractory acidosis
== END 2016-12-12 14:00 | disposition expired | DRG 220 ==
LOC: 2ORMAIN 12-11 05:58 → 6ICU 12-11 13:04
PROVIDERS: ADMIT Surgery; ATTEND Surgery
PROC: 02100Z9 Bypass Coronary Artery, One Artery from Left Internal Mammary, Open Approach (ICD-10-PCS; 2016-12-11)
PROC: 06BQ4ZZ Excision of Left Saphenous Vein, Percutaneous Endoscopic Approach (ICD-10-PCS; 2016-12-11)
PROC: 06BP4ZZ Excision of Right Saphenous Vein, Percutaneous Endoscopic Approach (ICD-10-PCS; 2016-12-11)
PROC: 5A1221Z Performance of Cardiac Output, Continuous (ICD-10-PCS; 2016-12-11)
PROC: B246ZZ4 Ultrasonography of Right and Left Heart, Transesophageal (ICD-10-PCS; 2016-12-11)
PROC: 5A1223Z Performance of Cardiac Pacing, Continuous (ICD-10-PCS; 2016-12-11)
PROC: 02L70CK Occlusion of Left Atrial Appendage with Extraluminal Device, Open Approach (ICD-10-PCS; 2016-12-11)
PROC: 30233K1 Transfusion of Nonautologous Frozen Plasma into Peripheral Vein, Percutaneous Approach (ICD-10-PCS; 2016-12-11)
PROC: 30233N1 Transfusion of Nonautologous Red Blood Cells into Peripheral Vein, Percutaneous Approach (ICD-10-PCS; 2016-12-11)
PROC: 02RF08Z Replacement of Aortic Valve with Zooplastic Tissue, Open Approach (ICD-10-PCS; principal; 2016-12-11 08:30)
PROC: 021009W Bypass Coronary Artery, One Artery from Aorta with Autologous Venous Tissue, Open Approach (ICD-10-PCS; 2016-12-11 08:30)
PROC: 5A12012 Performance of Cardiac Output, Single, Manual (ICD-10-PCS; 2016-12-12)
PROC: 30233R1 Transfusion of Nonautologous Platelets into Peripheral Vein, Percutaneous Approach (ICD-10-PCS; 2016-12-12)
PROC: 30233M1 Transfusion of Nonautologous Plasma Cryoprecipitate into Peripheral Vein, Percutaneous Approach (ICD-10-PCS; 2016-12-12)
DX: I25.10 Atherosclerotic heart disease of native coronary artery without angina pectoris (principal); E87.4 Mixed disorder of acid-base balance; R57.0 Cardiogenic shock; I46.9 Cardiac arrest, cause unspecified; D68.9 Coagulation defect, unspecified; K55.9 Vascular disorder of intestine, unspecified; D69.6 Thrombocytopenia, unspecified; I35.1 Nonrheumatic aortic (valve) insufficiency; I36.1 Nonrheumatic tricuspid (valve) insufficiency; I34.0 Nonrheumatic mitral (valve) insufficiency; I95.81 Postprocedural hypotension; R06.00 Dyspnea, unspecified; I49.1 Atrial premature depolarization; I35.0 Nonrheumatic aortic (valve) stenosis; R00.0 Tachycardia, unspecified; E66.9 Obesity, unspecified; D50.0 Iron deficiency anemia secondary to blood loss (chronic); M19.90 Unspecified osteoarthritis, unspecified site; I10 Essential (primary) hypertension; E78.5 Hyperlipidemia, unspecified; Z79.899 Other long term (current) drug therapy; Z87.891 Personal history of nicotine dependence; Z80.42 Family history of malignant neoplasm of prostate; Z82.49 Family history of ischemic heart disease and other diseases of the circulatory system; Z79.82 Long term (current) use of aspirin; Z96.653 Presence of artificial knee joint, bilateral; Z88.4 Allergy status to anesthetic agent; Z88.0 Allergy status to penicillin; Z98.42 Cataract extraction status, left eye; Z98.41 Cataract extraction status, right eye; Z79.1 Long term (current) use of non-steroidal anti-inflammatories (NSAID); Z79.891 Long term (current) use of opiate analgesic; Z98.818 Other dental procedure status
CPT/HCPCS: 71010; 76700; 76857; 80048; 80053; 82330; 82805; 83735; 84100; 85025; 85347; 85384; 85520; 85610; 85730; 86850; 86891; 86900; 86901; 86920; 88305; 88311; 93308; 94002; 94003; 94640